=== PATIENT | male | born 1950 | race Caucasian/White ===

== ENCOUNTER → 2017-10-24 10:42 | Outpatient (POV) | payer MEDICARE, OTHER, SELFPAY | PROVIDERS: Family Provider Nurse Practitioner Family; PCP Nurse Practitioner Family; Visit Provider Physician Assistant | DX: Z00.00 Encounter for general adult medical examination without abnormal findings (principal) ==

== ENCOUNTER → 2018-03-21 10:26 | Outpatient (POV) | payer MEDICARE, OTHER, SELFPAY | PROVIDERS: Visit Provider Dermatology | DX: Z00.00 Encounter for general adult medical examination without abnormal findings (principal) ==

== ENCOUNTER → 2018-12-22 07:52 | Outpatient (CLI) | payer MEDICARE, SELFPAY ==
--- NOTE | 2018-12-22 07:56 | US_ITS ---
PROCEDURE: US AORTA CLINICAL INDICATION: SCREENING AAA , FORMER SMOKER COMPARISON: No exams were available for comparison FINDINGS: No evidence of abdominal aortic aneurysm. Proximal common iliacs have an unremarkable appearance. IMPRESSION: Negative for abdominal aortic aneurysm Dictated by: Kirit Leigh MD 12/22/2018 18:18 Electronically signed by Kirit Leigh MD in [place] 12/22/2018 18:18
== END ==
PROVIDERS: PCP Nurse Practitioner Family; Visit Provider Family Medicine
DX: Z87.891 Personal history of nicotine dependence (principal); Z13.6 Encounter for screening for cardiovascular disorders
CPT/HCPCS: 76770

== ENCOUNTER → 2019-04-13 14:25 | Outpatient (CLI) | payer MEDICARE, SELFPAY ==
--- NOTE | 2019-04-13 14:34 | XR_ITS ---
PROCEDURE: XR KUB CLINICAL INDICATION: kidney stone COMPARISON: ABDPELW/O CT ABD PELVIS W/O CONTRAST from 08/28/2014 FINDINGS: Gas pattern-The bowel gas pattern is unremarkable. No obvious obstruction. Calcifications-No abnormal calcifications are evident. No obvious renal or ureteral calculi. Bones-No acute bony anomalies evident. IMPRESSION: No acute findings. Dictated by: Kirit Leigh MD 04/13/2019 16:29 Electronically signed by Kirit Leigh MD in [place] 04/13/2019 16:29
== END ==
PROVIDERS: PCP Family Medicine; Visit Provider Urology
DX: N20.0 Calculus of kidney (principal)
CPT/HCPCS: 74018

== ENCOUNTER → 2019-04-17 15:31 | Outpatient (CLI) | payer MEDICARE, SELFPAY ==
--- NOTE | 2019-04-17 15:53 | CT_ITS ---
PROCEDURE: CT ABDOMEN PELVIS WO CON CLINICAL INDICATION: flank pain/ hematuria Right flank pain, hematuria history kidney stones COMPARISON: ABDPELW/O CT ABD PELVIS W/O CONTRAST from 08/28/2014 TECHNIQUE: Axial images obtained with sagittal and coronal reformats. All CT scans at the facility use one or more dose reduction, viz: automated exposure control, ma/kV adjustment per patient size (including targeted exams where dose is matched to indication, i.e. head), or iterative reconstruction technique. FINDINGS: LOWER THORAX: Coronary artery stent and or calcification noted ABDOMEN & PELVIS: Multiple gallstones are present. The liver, spleen, adrenal glands, and pancreas have an unremarkable unenhanced appearance. There are multiple bilateral renal cyst as well as bilateral renal calculi with multiple punctate calculi on the right measuring up to 4 mm mid on the left measuring up to 3 mm. There is mild stranding of the right perinephric renal fat. There is mild right hydronephrosis and hydroureter with stranding of the periureteral fat. There is a right ureterovesical junction stone which measures 6 mm. Prostate is prominent at 6 cm with central low-density changes in the prostate which could be due to prior TURP defect. No intestinal obstruction or free air. There is a small hiatal hernia. No evidence of appendicitis, intestinal obstruction, or free air. No evidence of diverticulitis although there is diverticulosis of the descending and sigmoid colon soft tissue density is present in the left inguinal region and could be due to prior hernia repair. There is a small umbilical hernia containing fat. No acute bony findings. IMPRESSION: 6 mm right ureterovesical junction stone with mild right hydroureter and hydronephrosis with stranding of the perinephric renal fat. Bilateral renal calculi with bilateral renal cyst Cholelithiasis Dictated by: Kiirt Leigh MD 04/17/2019 16:43 Electronically signed by Kirit Liegh MD in [place] 04/17/2019 16:43
== END ==
PROVIDERS: PCP Family Medicine; Visit Provider Urology
DX: R10.9 Unspecified abdominal pain (principal); R31.9 Hematuria, unspecified
CPT/HCPCS: 74176

== ENCOUNTER → 2019-04-30 09:14 | Outpatient (CLI) | payer MEDICARE, SELFPAY ==
--- NOTE | 2019-04-30 09:21 | XR_ITS ---
PROCEDURE: XR FOOT WT BEARING LT 3V CLINICAL INDICATION: pain Left foot pain COMPARISON: No exams were available for comparison FINDINGS: No fracture or dislocation. No lytic or blastic change. There is normal mineralization. There are severe osteoarthritic changes at the 1st metatarsophalangeal joint with osteosclerosis, loss of joint space, and prominent osteophyte formation. Other findings:None. 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
--- NOTE | 2019-04-30 09:21 | XR_ITS ---
PROCEDURE: XR FOOT WT BEARING RT 3V CLINICAL INDICATION: pain Right foot pain COMPARISON: No exams were available for comparison FINDINGS: No fracture or dislocation. No lytic or blastic change. There is normal mineralization. The moderate osteoarthritic changes are present at the 1st MTP joint with osteophyte formation. There is a small calcaneal spur. Other findings:None. IMPRESSION: Osteoarthritis of the 1st MTP joint Dictated by: Kirit Leigh MD 04/30/2019 11:40 Electronically signed by Kirit Leigh MD in [place] 04/30/2019 11:40
== END ==
PROVIDERS: PCP Family Medicine; Visit Provider Podiatrist
DX: M79.672 Pain in left foot (principal); M79.671 Pain in right foot
CPT/HCPCS: 73630

== ENCOUNTER → 2019-10-23 13:25 | Outpatient (POV) | payer MEDICARE, SELFPAY | PROVIDERS: Visit Provider Dermatology | DX: Z00.00 Encounter for general adult medical examination without abnormal findings (principal) ==

== ENCOUNTER → 2020-03-27 07:38 | Outpatient (CLI) | payer MEDICARE, OTHER, SELFPAY ==
--- NOTE | 2020-03-27 07:39 | NM_ITS ---
APPROVED REPORT Exam: Nuclear Stress Test Indication: short of breath..syncope..fatigue Patient Location: Outpatient Stress Tech: Geovanna Huynh CT Tech:ZAIDA Bloom RT(R)(N) Ht: 5 ft 10 in Wt: 225 lbs HR: 58 bpm BP: 175/106 mmHg BSA: 2.19 m2 BMI: 32.2 History: short of breath..syncope..fatigue Procedure: Patient exercised on Alexandr protocol 6.30 minutes and sec, resting heart rate 58 bpm, resting blood pressure 175/106 mmHg, with exercise maximum heart rate achived was 132 bpm which is 87 % of the maximum predicted heart rate and blood pressure was 200/110 mmHg. Patient denied any complaint of chest pain. Patient has Adequate exercise capacity, achieved 7.0 METs of workload on treadmill, the blood pressure response to exercise was Hypertensive. Electrocardiogram Resting electrocardiogram showed sinus rhythm, with exercise there is less than 1.[address] segment depression noted from the baseline EKG. The EKG portion of the exercise Myoview is negative for ischemia. Cardiac Stress and Resting SPECT Images: Cardiac Stress and Resting SPECT images were obtained using technetium 99m Myoview 31.5 mCi stress and 10.92 mCi at rest. Gated SPECT for analysis of segmental wall motion and calculation of the ejection fraction also done. Prone images were also obtained. Cardiac stress and resting SPECT images show uniform myocardial activity without segmental perfusion abnormality, computer derived ejection fraction is 54% with no regional wall motion abnormality, right ventricle is mildly enlarged with normal contractility. Conclusion: 1. The EKG portion of the exercise Myoview is negative for ischemia, patient has adequate exercise capacity achieved 7 mets of workload on treadmill, the blood pressure response to exercise was hypertensive, there was no exercise-induced chest discomfort. 2. No scintigraphic evidence of reversible ischemia seen, computer derived ejection fraction 54% with no regional wall motion abnormality, right ventricle is mildly enlarged with normal contractility. Electronically signed by : Sean Mccarthy, 03/27/2020 15:01:56
--- NOTE | 2020-03-27 09:45 | CA_ITS ---
APPROVED REPORT Exam: Exercise Treadmill Technologist: Ivelisse Dick, Ht: 5 ft 10 in Wt: 230 lbs BSA: 2.21 m2 HR: 58 bpm BP: 175/106 mmHg Medical History Medications: Aspirin,,,,, Carvedilol,,,,, Nexium,,,,, AtorvaASTATIN,,,,, Stress Test Details Test: Alexandr HR Resting HR: 60 bpm Max Heart Rate (APMHR): 151 bpm Max HR Achieved: 132 bpm Target HR (85% APMHR): 128 bpm % of APMHR: 87 Recovery HR: 76 bpm BP Resting BP: 182/100 mmHg Max BP: 220/98 mmHg Recovery BP: 172.0/92.0 mmHg ECG Resting ECG: Sinus bradycardia, incomplete RBBB, PVC, cannot rule out old inferior MA Medications Administered Albuterol ( mg at ) Clinical Exercise duration: 06:31 min Highest Stage Achieved: Exercise capacity: 7.0 METs Stress ECG Conclusion Exercised 6:30 on Alexandr Protocol Max HR: 132 % of PM: 87% Max BP: 220/98 MET's: 7.0 Test stopped due to: SOA, Fatigue Symptoms: No CP Arrhythmias/Ectopy: Occ PVC, One ventricular couplet. ST-T Changes: ST response to exercise is within normal. Conclusion: Normal GXT, Uncontrolled HTN, Myoview images reported separately. Test Summary REST . . . . . . . Resting REST . . . . . . . Standing REST 05:03 0.0 0.0 60 . 182/100 . . Stage 1 01:00 10.0 1.7 89 . . . . Stage 1 02:00 10.0 1.7 106 . . . . Stage 1 03:00 10.0 1.7 114 . 200/110 . . Stage 2 01:00 12.0 2.5 119 . . . . Stage 2 02:00 12.0 2.5 124 . . . . Stage 2 . . . . . . . Cardiolite injected Stage 2 03:00 12.0 2.5 126 . . . . Stage 3 00:31 14.0 3.4 131 . . . Stop exercise at 06:31 RECOVERY 01:00 0.0 0.0 108 . . . . RECOVERY 02:00 0.0 0.0 91 . 220/ 98 . . RECOVERY 03:00 0.0 0.0 82 . 206/113 . . RECOVERY 04:00 0.0 0.0 79 . 206/113 . . RECOVERY 05:00 0.0 0.0 76 . 172/ 92 . . RECOVERY 05:23 0.0 0.0 78 . 172/ 92 . . Electronically signed by : Sean Mccarthy, 03/27/2020 14:58:40
--- NOTE | 2020-03-27 09:52 | CA_ITS ---
APPROVED REPORT EXAM: Comprehensive 2D, Doppler, and color-flow Echocardiogram Pattern Technician: Yvonne Moran RCS, RVS Ht: 5 ft 10 in Wt: 230lbs BSA: 2.21 BP: 162/94 mmHg Rhythm: PVC's Indications: CAD-stent , Abn EKG, GERD 2D Dimensions IVSd 1.04 cm LVEF (Visual) 73.90 % PWd 1.01 cm LA Volume 70.00 mL LVDd 5.36 cm LA Volume Index 30.80 mL/m2 (M/F) 16-34 LVDs 3.04 cm Aortic Root 3.13 cm Left Atrium 4.20 cm LVOT 1.96 cm (M/F) 1.5-2.5 Ascending Aorta 3.04 cm M-Mode Dimensions LA Diam 4.10 cm (1.9-4.0) Ao Diam 3.55 cm (2.0-3.7) EPSs 0.38 cm TAPSE 2.90 (<1.7) LV Diastology E Decel Time 240.00 (160-240 msec) E/A Ratio 1.05 MED E' 4.70 (< 7 cm/sec) MED A' 9.60 cm/s E'/MED E' Ratio 11.74 (>14) LAT E' 6.20 (<10 cm/sec) LAT A' 11.60 cm/s E/LAT E' Ratio 8.90 (>14) Aortic Valve LVOT Max 88.00 (70-110 cm/s) LVOT VTI 18.40 cm AO Peak GR. 4.40 mmHg Mitral Valve MV E Max Narinder. 55.00 (40-130 cm/s) MV A Velocity 52.00 (40-130 cm/s) E/A Ratio 1.05 MV Decel. Time 240.00 (160-240 ms) MV PHT 70.00 ms Pulmonary Valve PV Peak Velocity 87.00 (50-150 cm/s) Tricuspid Valve TR P. Velocity 202.00 cm/s RAP Estimate 10.00 mmHg RVSP 26.40 mmHg Left Ventricle Left atrium is mildly enlarged, left ventricle is normal size, mild concentric left ventricular hypertrophy, visually estimated ejection fraction 55% with no regional wall motion abnormality. Grade 1 diastolic dysfunction seen without tissue Doppler evidence of raise left atrial pressure. Right Ventricle Right atrium and right ventricle are mildly enlarged with normal contractility. Aortic Valve Aortic valve is minimally thickened and fibrosed there is no aortic stenosis or aortic insufficiency. Mitral Valve Mitral valve is grossly normal, there is trace mitral regurgitation. Tricuspid Valve Tricuspid valve grossly normal, there is trace tricuspid regurgitation, tricuspid regurgitation jet velocity is inadequate for calculation of the right ventricular systolic pressure. Pulmonic Valve Pulmonic valve is poorly visualized. Great Vessels Aortic root is normal size. Pericardium No significant pericardial effusion noted. Conclusion 1. Biatrial enlargement, normal left ventricular size, mild concentric left ventricular hypertrophy, visually estimated ejection fraction 55% with no regional wall motion abnormality, grade 1 diastolic dysfunction seen without tissue Doppler evidence of raise left atrial pressure. 2. Mildly enlarged right ventricle with normal contractility. 3. Mild mitral and tricuspid regurgitation. 4. No significant pericardial effusion noted. Electronically signed by : Sean Mccarthy, 03/27/2020 14:57:27
== END ==
PROVIDERS: PCP Family Medicine; Visit Provider Nurse Practitioner Family
DX: E78.5 Hyperlipidemia, unspecified (principal); I10 Essential (primary) hypertension; I25.10 Atherosclerotic heart disease of native coronary artery without angina pectoris; R06.00 Dyspnea, unspecified; R42 Dizziness and giddiness; R53.83 Other fatigue; R94.31 Abnormal electrocardiogram [ECG] [EKG]
CPT/HCPCS: 78452; 93017; 93306; A9502

== ENCOUNTER 2020-04-11 08:58 | Day surgery (SDC) | payer MEDICARE, OTHER, SELFPAY ==
[2020-04-11] VITALS (12 sets, daily range): BP systolic 92–150; BP diastolic 58–106; PULSE 48–64; RESP 16–20; TEMP 36.8; O2SAT 91–97; BMI 33.3
--- NOTE | 2020-04-11 07:08 | IR_ITS ---
APPROVED REPORT Patient Location: Outpatient Electric Motor Winders Assembler: ZAIDA Stockton RT (R) PROCEDURES Left heart catheterization Left ventriculogram Selective coronary angiogram INDICATION Known coronary disease, Worsening angina pectoris Informed consent was obtained prior to the procedure. COMPLICATIONS None Estimated Blood Loss: Less than 10 mls TECHNIQUE One percent lidocaine used to anesthetize the right anterior aspect of the wrist. The right radial artery was accessed via the Seldinger technique. A 6 Japanese sheath was placed in the right radial artery. 2.5 mg of verapamil, 800 mcg of nitroglycerin, 1mg Lidocaine and 5000 U Heparin were given through the arterial sheath. The trap catheter was also used to perform left heart catheterization, left ventriculogram and selective coronary angiogram. At the end of the procedure the sheath was removed good hemostasis was achieved using Traclet band, patient was transferred to the postop holding area in stable condition. ANGIOGRAPHIC RESULTS The left main artery Normal The left anterior descending artery Is proximally normal. The mid vessel has a myocardial bridge which compresses to 60% during systole with remaining vessel normal The circumflex artery Dominant with mild nonflow limiting plaque. This gives rise to a large ramus intermedius which is free of disease The right coronary artery Nondominant with proximal and mid vessel 10 to 20% stenoses The HO ventriculogram reveals Preserved at 55% The left ventricular end-diastolic pressure 15 mmHg IMPRESSION Patent coronary arteries as described above with an inconsequential myocardial bridge Preserved ejection fraction Borderline elevated LVEDP PLAN 1. Medical management Electronically signed by : Jaswinder Mckinnon, 04/11/2020 10:05:43
== END 2020-04-11 13:05 | disposition home or self-care (01) ==
LOC: CATHLAB 09:00
PROVIDERS: PCP Family Medicine; Visit Provider Internal Medicine
DX: E78.2 Mixed hyperlipidemia (principal); I10 Essential (primary) hypertension; I25.118 Atherosclerotic heart disease of native coronary artery with other forms of angina pectoris; R06.00 Dyspnea, unspecified; Z95.5 Presence of coronary angioplasty implant and graft; Z79.899 Other long term (current) drug therapy; I25.2 Old myocardial infarction; Z87.891 Personal history of nicotine dependence
CPT/HCPCS: 93458; 99152; C1725; C1760; C1769; J1644; Q9967

== ENCOUNTER → 2020-10-07 10:10 | Outpatient (POV) | payer MEDICARE, SELFPAY | PROVIDERS: Visit Provider Dermatology | DX: Z00.00 Encounter for general adult medical examination without abnormal findings (principal) ==

== ENCOUNTER → 2021-06-02 09:59 | Outpatient (POV) | payer MEDICARE, SELFPAY | PROVIDERS: Visit Provider Dermatology | DX: Z00.00 Encounter for general adult medical examination without abnormal findings (principal) ==

== ENCOUNTER → 2021-06-30 14:37 | Outpatient (POV) | payer MEDICARE, SELFPAY | PROVIDERS: Visit Provider Dermatology | DX: Z00.00 Encounter for general adult medical examination without abnormal findings (principal) ==

== ENCOUNTER → 2021-09-19 10:07 | Outpatient (CLI) | payer MEDICARE, SELFPAY ==
[2021-09-19 10:19] LABS: MANUAL DIFFERENTIAL MANUAL DIFFERENTIAL (MANUAL DIFF)
--- NOTE | 2021-09-19 10:33 | ECG_ITS ---
APPROVED REPORT Exam: Resting ECG HR:56 bpm ECG Measurements Heart Rate 56 AXES NV 179 P 48 QRSd 128 QRS 61 QT 427 T 48 QTc 420 Conclusion SINUS BRADYCARDIA POSSIBLE RIGHT VENTRICULAR CONDUCTION DELAY [RSR (QR) IN V1/V2] INFERIOR MYOCARDIAL INFARCTION , PROBABLY OLD [40+ ms Q WAVE AND/OR ST/T ABNORMALITY IN II/aVF] ANTEROLATERAL MYOCARDIAL INFARCTION , OF INDETERMINATE AGE [40+ ms Q WAVE IN I/aVL/V3-V6] ABNORMAL ECG UNCONFIRMED REPORT Electronically signed by : Lopez Richardson MD 09/21/2021 14:33:03
[2021-09-19 11:28] LABS: Basophils # 0.1 K/mm3 (0-0.2); Basophils % 1.1 % (0.1-2.0); Eosinophils # 0.3 K/mm3 (0.0-0.4); Eosinophils % 4.4 % (0.1-12.0); Hematocrit 45.5 % (42.0-52.0); Hemoglobin 14.3 g/dL (14.1-18.0); Lymphocytes # 1.8 K/mm3 (0.7-4.5); Lymphocytes % 29.2 % (10-50); Mean Corpuscular HGB Conc 31.5 g/dL (31.8-35.4); Mean Corpuscular Hemoglobin 28.3 pg (27.0-31.2); Mean Corpuscular Volume 89.8 fl (80-94); Mean Platelet Volume 8.4 fl (7.4-10.4); Monocytes # 0.4 K/mm3 (0.1-1.0); Monocytes % 7.1 % (1.7-9.3); Neutrophils # 3.5 K/mm3 (1.8-7.8); Neutrophils % 58.2 % (37.0-80.0); Platelet Count 188 K/mm3 (142-424); Red Blood Count 5.06 M/mm3 (4.60-6.20); White Blood Count 6.1 K/mm3 (4.8-10.8)
[2021-09-19 11:37] LABS: Alanine Aminotransferase 27 U/L (12-78); Albumin Level 3.7 g/dl (3.5-5.0); Albumin/Globulin Ratio 1.3 (1.1-1.8); Alkaline Phosphatase 135 U/L (38-126); Anion Gap 7.3 mEq/L (5-15); Aspartate Amino Transferase 29 U/L (17-59); Bilirubin,Total 0.6 mg/dl (0.2-1.3); Blood Urea Nitrogen 16 mg/dl (9-20); Calcium 8.8 mg/dl (8.4-10.2); Carbon Dioxide 28 mmol/L (22.0-30.0); Chloride 107 mmol/L (98-107); Estimated Glomerular Filt Rate 54 ml/min (>60); GFR (African American) 66 ML/MIN (>60); Globulin 2.8 g/dL (1.3-3.2); Glucose 104 mg/dl (74-100); Potassium 4.3 mmoL/L (3.5-5.1); Sodium 138 mmol/L (136-145); Total Protein,Serum 6.5 g/dl (6.3-8.2)
[2021-09-19 14:00] LABS: Eosinophils % 6 % (0-3); Lymphocytes % 32 % (10-50); Monocytes % 3 % (2-9); Neutrophils % 59 % (42-76); Total Cells Counted 100
[2021-09-19 14:01] LABS: Platelet Estimate Normal; RBC Morphology Normal
== END ==
PROVIDERS: PCP Nurse Practitioner Family; Visit Provider Otolaryngology
DX: J34.89 Other specified disorders of nose and nasal sinuses (principal); Z01.818 Encounter for other preprocedural examination; Z20.822 Contact with and (suspected) exposure to COVID-19
CPT/HCPCS: 36415; 80053; 85007; 85014; 85018; 85048; 85049; 93005; C9803; U0003; U0005

== ENCOUNTER 2021-09-22 08:12 | Day surgery (SDC) | payer MEDICARE, SELFPAY ==
[2021-09-22] VITALS (8 sets, daily range): BP systolic 105–183; BP diastolic 64–97; PULSE 58–65; RESP 12–16; TEMP 36.1–36.4; O2SAT 93–100; BMI 33.0
--- NOTE | 2021-09-22 11:41 | P.OP_ITS ---
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 And then the nose was prepped and draped and then the 7 mm papillomatous looking lesion was excised elliptically down to the underlying submucosa leaving an approximately 5 mm defect. Hemostasis was established with bipolar cautery. The specimen was sent for frozen section analysis and frozen section was benign. Closure was performed with 5-0 chromic in simple interrupted fashion and the procedure concluded. All counts correct. Blood loss minimal. Patient was sent to recovery in stable condition. Condition: stable Disposition: PACU Complications:: None
--- NOTE | 2021-09-22 12:19 | SUR.PHASEI ---
1212 called and gave detailed report to Dean Webb RN 1215 transported pt to post op via stretcher. vital signs stable. denies pain. left in stable condition with Dean Webb RN at bedside.
--- NOTE | 2021-09-23 09:46 | P.PN_ITS ---
[facility] Anesthesia Record Part I Intake, IV Amount: 800 Estimated blood loss (mL): 15 Urine output (mL): 0 Blood Pressure: 105/64 SaO2: 94 Pulse Rate: 59 Respiratory Rate: 12 Temperature: 97.6 F Patient is:: Drowsy Stable to PACU at:: 11:45
[2021-09-23 09:47] VITALS: BP 105/64; PULSE 59; RESP 12; TEMP 36.4; O2SAT 94
--- NOTE | 2021-09-23 09:47 | HMH.ANESCL ---
[facility] Anesthesia Checklist - Patient Identification Patient Identification: Verbal (Name & ) - Structural Data Admitted From: Inpatient Planned Operative Procedure/s: Right Nasal Polyp Biopsy Consent for Planned Operative Procedure(s) Verified: Yes - NPO Status Verified Time NPO: 00:00 - Additional verifications Anesthesia Reactions: No Hx Blood Transfusions: No Blood Transfusion Reaction: No - Airway Assessment C-Spine Mobility Assessed: Yes TMJ Mobility Assessed: Yes Dentition: Good Dentition - Neurological Assessment Level of Consciousness: Awake, Alert, Appropriate - Anesthesia Plan Anesthesia Risk discussed: Yes ASA Class: II Anesthesia Type: General [facility] History I have reviewed the patient's past medical history: Yes Medical History: Reports:: Cancer (skin), Coronary Artery Disease, Gastroesophageal Reflux Disease(GERD), Hypertension, Kidney Stones, Myocardial Infarction Denies:: Diabetes Mellitus Type 1, Diabetes Mellitus Type 2, Internal Pacemaker, MRSA, Seizures *Have you ever received a pneumonia vaccine?: Yes *Have you received a flu vaccine this season?: No Other Medical History: Denies: Blood Transfusion Reaction Anesthesia experience/problems:: none Other Surgeries: Yes: No Previous Surgery, Cardiac Catheterization, Coronary Stent, Hernia Repair. No: Pacemaker Amputation: No Fractures: No - *Social History Last grade of school completed: High school graduate Smoking Status: Never smoker Tobacco Type: cigarettes Alcohol Intake: never Substance Use Type: denies use *Occupational Status:: employed Housing: house Household Members: spouse *Travel in the last 8 weeks: None Family Hx:: Cancer
--- NOTE | 2021-09-23 10:46 | HMH.ANESII ---
[facility] Anesthesia Record Part II Discharge Time: 12:15 Destination: Surgical Day Care (OP Surgery) PACU nurse assessment reviewed?: Yes Patient Condition:: Good Anesthesia Complications:: None Swallowing reflex intact?: Yes Cyanosis?: No Blood Pressure: 133/83 Pulse Rate: 60 Temperature: 97 F Mental Status: Alert & Oriented Pain level:: 0 Nausea and/or vomitting:: None Intake, IV Amount: 0
[2021-09-23 10:47] VITALS: BP 133/83; PULSE 60; TEMP 36.1
== END 2021-09-22 12:46 | disposition home or self-care (01) ==
LOC: OR 08:17
PROVIDERS: PCP Family Medicine; Visit Provider Otolaryngology
DX: J34.89 Other specified disorders of nose and nasal sinuses (principal); I10 Essential (primary) hypertension; I25.10 Atherosclerotic heart disease of native coronary artery without angina pectoris; K21.9 Gastro-esophageal reflux disease without esophagitis; Z79.899 Other long term (current) drug therapy
CPT/HCPCS: 30117; 88305; 88331; 96374; J2405

== ENCOUNTER → 2021-10-13 11:17 | Outpatient (POV) | payer MEDICARE, SELFPAY | PROVIDERS: Visit Provider Dermatology | DX: Z00.00 Encounter for general adult medical examination without abnormal findings (principal) ==

== ENCOUNTER 2021-10-15 13:42 | Emergency (ER) | payer MEDICARE, SELFPAY ==
[2021-10-15 14:00] VITALS: BP 126/82; PULSE 74; RESP 20; TEMP 36.8; O2SAT 97; BMI 34.4
--- NOTE | 2021-10-15 14:02 | XR_ITS ---
FINAL REPORT CLINICAL HISTORY: COUGH, recent covid, patient states he just can't breath good since covid, previous smoker FINDINGS: Two views of the chest were obtained. The heart size and pulmonary vascularity are within normal limits. The mediastinum is normal. The lungs are hyperinflated likely representing COPD. There are bibasilar pulmonary opacities. There are small bilateral pleural effusions. There is no pneumothorax. The bony thorax is intact. IMPRESSION: Bilateral pulmonary opacities could represent pneumonia or atelectasis. Small bilateral pleural effusions. Reviewed, Interpreted and Dictated by Arturo Douglas III, MD Transcribed by Srinath Valenzuela Authenticated and [facility]
--- NOTE | 2021-10-15 14:33 | EXP.UTC ---
Discharge Plan Disposition Patient Disposition: Home, Self-Care Condition: Good Prescriptions Prescriptions: New cefdinir 300 mg capsule 300 mg PO BID Qty: 20 0RF prednisone 20 mg tablet 20 mg PO BID 5 Days Qty: 10 0RF No Action atorvastatin 80 mg tablet 80 mg PO HS aspirin [Adult Low Dose Aspirin] 81 mg tablet,delayed release (DR/EC) 81 mg PO DAILY carvedilol 12.5 mg tablet 12.5 mg PO BID losartan 50 mg tablet 50 mg PO DAILY Qty: 30 5RF esomeprazole magnesium 20 MG capsule,delayed release(DR/EC) 20 mg PO DAILY hydrocodone-acetaminophen 1 EACH tablet 1 tab PO BID PRN (Reason: Severe Pain) 3 Days Qty: 5 0RF Referrals Follow up/Referrals: Lopez Heller MD [Primary Care Provider] - See instructions Activity Restrictions/Add. Instructions Additional Instructions/Restrictions: Take medications as prescribed GO straight to ER if you have any worsening of symptoms Follow up with your Family Doctor for re-evaluation to make sure that medication is clearing the infection Return if needed Clinical Impressions Clinical Impression: Pneumonia Discharge ED Provider: Geovanna Hutchins [facility] HPI General Stated complaint: covid+, soa, congestion Mode of Arrival: Ambulatory Source of Information: Patient Limitations: No Limitations Time Seen by Provider: 10/15/21 14:34 Description of Symptoms (Recalled from Triage Doc. by RN): PATIENT C/O PRODUCTIVE COUGH WITH YELLOW SPUTUM, SOA, AND BODY ACHES. REPORTS HE WAS DIAGNOSED WITH COVID 2 WEEKS AGO HEENT Symptoms (Recalled from RN notes): No Resp Symptoms (Recalled from RN notes): Yes Skin Symptoms (Recalled from RN notes): No MS Symptoms (Recalled from RN notes): No Functional Status (Recalled from RN notes): WNL History of Present Illness Provider Complaint: Patient states that he had COVID a couple weeks ago and still not feeling well States that he is still having cough and at times will cough up some mucous States that he has also felt a little SOA if he is up moving around alot and feeling achy States that he was worried that he may be trying to set up Pneumonia so he wanted to come in and get checked before it got too bad Related Data Home Medications Medication Instructions Recorded Confirmed aspirin 81 mg tablet,delayed 81 mg PO DAILY Heartburn 03/18/20 09/30/21 release (Adult Low Dose Aspirin) atorvastatin 80 mg tablet 80 mg PO HS Cholesterol 03/18/20 09/30/21 carvedilol 12.5 mg tablet 12.5 mg PO BID HEARRT 03/31/20 09/30/21 esomeprazole magnesium 20 mg 20 mg PO DAILY GERD 09/22/21 09/30/21 capsule,delayed release Previous Rx's Medication Instructions Recorded hydrocodone 5 mg-acetaminophen 325 1 tab PO BID PRN Severe Pain 3 09/22/21 mg tablet days #5 tabs losartan 50 mg tablet 50 mg PO DAILY High blood pressure 10/05/21 #30 tabs cefdinir 300 mg capsule 300 mg PO BID #20 caps 10/15/21 prednisone 20 mg tablet 20 mg PO BID 5 days #10 tabs 10/15/21 Allergies Allergy/AdvReac Type Severity Reaction Status Date / Time No Known Allergies Allergy Verified 09/30/21 12:18 Worker's Comp Is this a Worker's Comp case?: No PFSH PFSH Medical History (Updated 10/15/21 @ 15:29 by Geovanna Hutchins APRN) Heart attack Hypertension Hypertension Kidney stones Surgical History (Updated 10/15/21 @ 14:26 by Keren Shaikh RN) H/O right heart catheterization History of hernia repair Family History (Updated 09/30/21 @ 12:43 by DAISY Mendez) Other Cancer Diabetes Social History (Updated 10/15/21 @ 14:26 by Keren Shaikh RN) Smoking Status: Never smoker alcohol intake: never substance use type: denies use current occupational status: employed Travel in the last 8 weeks: None household members: spouse housing: house 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
[2021-10-15 15:01] VITALS: BP 126/82; PULSE 74; RESP 20; TEMP 36.8; O2SAT 97
== END 2021-10-15 15:48 | disposition home or self-care (01) ==
PROVIDERS: Emergency Provider Nurse Practitioner; PCP Family Medicine
DX: J18.9 Pneumonia, unspecified organism (principal); Z86.16 Personal history of COVID-19
CPT/HCPCS: 71046; 94640; 99212; G0463

== ENCOUNTER 2021-10-20 19:38 | Observation (INO) | payer MEDICARE, SELFPAY ==
[2021-10-20 19:39] VITALS: BP 158/93; PULSE 91; RESP 16; TEMP 36.9; O2SAT 97; BMI 31.5
--- NOTE | 2021-10-20 20:01 | ECG_ITS ---
APPROVED REPORT Exam: Resting ECG HR:84 bpm ECG Measurements Heart Rate 84 AXES ME 171 P 68 QRSd 122 QRS 67 QT 373 T 52 QTc 414 Conclusion SINUS RHYTHM WITH OCCASIONAL VENTRICULAR PREMATURE COMPLEXES RIGHT BUNDLE BRANCH BLOCK [120+ ms QRS DURATION, UPRIGHT V1, 40+ ms S IN I/aVL/V4/V5/V6] PROBABLE ANTERIOR MYOCARDIAL INFARCTION , OF INDETERMINATE AGE [35 ms Q WAVE IN V3/V4] ABNORMAL ECG UNCONFIRMED REPORT Electronically signed by : Lopez Richardson MD 10/21/2021 07:14:43
--- NOTE | 2021-10-20 20:04 | CT_ITS ---
PROCEDURE INFORMATION: Exam: CTA Chest With Contrast Exam date and time: 10/20/2021 8:52 PM Age: 71 years old Clinical indication: Shortness of breath; Additional info: Short of breath, recent covid TECHNIQUE: Imaging protocol: Computed tomographic angiography of the chest with contrast. 3D rendering (Not supervised by radiologist): MIP and/or 3D reconstructed images were created by the technologist. Radiation optimization: All CT scans at this facility use at least one of these dose optimization techniques: automated exposure control; mA and/or kV adjustment per patient size (includes targeted exams where dose is matched to clinical indication); or iterative reconstruction. Contrast material: ISOVUE; Contrast volume: 70 ml; Contrast route: INTRAVENOUS (IV); COMPARISON: CR XR CHEST 2V 10/15/2021 2:02 PM FINDINGS: Pulmonary arteries: Normal. No pulmonary emboli. Aorta: Unremarkable. No aortic aneurysm. No aortic dissection. Lungs: In the left lung apex medially there is a spiculated mass measuring 3.3 cm concerning for malignancy. This is confluent with the prevascular mass. Coarse interstitial lung markings which could reflect mild interstitial edema versus interstitial pneumonia versus lymphangitic spread of carcinoma. Scattered areas of atelectasis bilaterally. Pleural spaces: Tiny bilateral pleural effusions. Heart: See Mediastinal space finding. Mediastinal space: Multiple irregular mediastinal masses all likely interconnected concerning for malignancy. This mass extends and involves the prevascular region, left hilar region, subcarinal region, AP window, peak carinal and right hilar regions. Lymph nodes: See Lungs finding. Gallbladder and bile ducts: Multiple gallstones. Bones/joints: Unremarkable. No acute fracture. Soft tissues: Unremarkable. IMPRESSION: 1. Confluent mediastinal mass as described above concerning for neoplasm. 2. Left lung apex spiculated mass concerning for malignancy. 3. Interstitial prominence could reflect interstitial edema versus interstitial pneumonia versus areas of lymphangitic spread of carcinomatosis. 4. Mild bilateral pleural effusions. Highly suspicious nodule(s). Consider non-emergent PET/CT, or tissue sampling.(Reference: Jose) References: Jose Nunez et al. Guidelines for Management of Incidental Pulmonary Nodules Detected on CT Images: From the Fleischner Society 2017. Radiology. 2017;284(1):228-243.
[2021-10-20 20:25] LABS: Coronavirus 19, PCR Not Detected (NotDetected); Influenza A, PCR Not Detected (NotDetected); Influenza B, PCR Not Detected (NotDetected)
[2021-10-20 20:26] LABS: Basophils # 0.1 K/mm3 (0-0.2); Basophils % 0.7 % (0.1-2.0); Eosinophils # 0.5 K/mm3 (0.0-0.4); Eosinophils % 3.7 % (0.1-12.0); Hematocrit 46.8 % (42.0-52.0); Hemoglobin 15.2 g/dL (14.1-18.0); Lymphocytes % 22.1 % (10-50); Mean Corpuscular HGB Conc 32.4 g/dL (31.8-35.4); Mean Corpuscular Hemoglobin 28.1 pg (27.0-31.2); Mean Corpuscular Volume 86.8 fl (80-94); Mean Platelet Volume 8.4 fl (7.4-10.4); Monocytes # 0.8 K/mm3 (0.1-1.0); Neutrophils # 9.2 K/mm3 (1.8-7.8); Neutrophils % 67.5 % (37.0-80.0); Platelet Count 276 K/mm3 (142-424); Red Blood Count 5.39 M/mm3 (4.60-6.20); Red Cell Distribution Width 13.9 % (11.5-17.5); White Blood Count 13.6 K/mm3 (4.8-10.8)
[2021-10-20 20:33] LABS: Alanine Aminotransferase 29 U/L (12-78); Albumin Level 3.6 g/dl (3.5-5.0); Albumin/Globulin Ratio 1.1 (1.1-1.8); Alkaline Phosphatase 177 U/L (38-126); Anion Gap 12.8 mEq/L (5-15); Aspartate Amino Transferase 25 U/L (17-59); Bilirubin,Total 0.3 mg/dl (0.2-1.3); Blood Urea Nitrogen 24 mg/dl (9-20); Calcium 8.6 mg/dl (8.4-10.2); Carbon Dioxide 31 mmol/L (22.0-30.0); Chloride 99 mmol/L (98-107); Creatinine Clearance Estimated 68 mL/min (50-200); Estimated Glomerular Filt Rate 50 ml/min (>60); GFR (African American) 60 ML/MIN (>60); Globulin 3.2 g/dL (1.3-3.2); Glucose 118 mg/dl (74-100); Potassium 3.8 mmoL/L (3.5-5.1); Sodium 139 mmol/L (136-145); Total Protein,Serum 6.8 g/dl (6.3-8.2)
[2021-10-20 20:45] VITALS: PULSE 81; RESP 17; O2SAT 92
[2021-10-20 20:47] LABS: Troponin I < 0.01 ng/ml (0.00-0.034)
[2021-10-20 21:30] VITALS: BP 130/81; PULSE 83; RESP 23; O2SAT 93
--- NOTE | 2021-10-20 22:07 | HMH.EDGENADL ---
Discharge Plan Disposition Patient Disposition: Admitted As Inpatient Condition: Fair Chief Complaint: Shortness of Breath/Dyspnea Clinical Impressions Clinical Impression: Hypoxia, Pulmonary nodule, Pneumonia Discharge ED Provider: Christiane Mckinnon Adult HPI General Chief complaint: Shortness of Breath/Dyspnea Stated complaint: SOB,cough,fever Time Seen by Provider: 10/20/21 20:00 Mode of Arrival: Ambulatory Limitations: No Limitations Description of Symptoms (Recalled from ER Triage Doc. by RN): pt state have covid 2 weeks ago then when into pneumonia and now pt c/o increasing SOA with exertion that progess over the past 2 days. History of Present Illness HPI narrative: 71-year-old male presenting to the emergency department with cough and shortness of breath. Symptoms started 2 weeks ago. He had a cough that was dry and nonproductive. Had generalized malaise, upper respiratory symptoms. He was diagnosed with COVID-19. A few days later, was diagnosed with pneumonia. Is taking cefdinir and prednisone as prescribed. Over the last few days the shortness of breath has gotten worse. He has shortness of breath with minimal exertion. Feels constantly tired and fatigued. Has occasional pain on the right side of his chest, worse with inspiration. He denies lower extremity swelling. No history of DVT or PE. Related Data Home Medications Medication Instructions Recorded Confirmed aspirin 81 mg tablet,delayed 81 mg PO DAILY Heartburn 03/18/20 10/20/21 release (Adult Low Dose Aspirin) atorvastatin 80 mg tablet 80 mg PO HS Cholesterol 03/18/20 10/20/21 carvedilol 12.5 mg tablet 12.5 mg PO BID HEARRT 03/31/20 10/20/21 esomeprazole magnesium 20 mg 20 mg PO DAILY GERD 09/22/21 10/20/21 capsule,delayed release cefdinir 300 mg capsule 300 mg PO BID LUNG INFECTION 10/20/21 10/20/21 prednisone 20 mg tablet 20 mg PO BID SHORTNESS OF BREATH 10/20/21 10/20/21 Previous Rx's Medication Instructions Recorded losartan 50 mg tablet 50 mg PO DAILY High blood pressure 10/05/21 #30 tabs Allergies Allergy/AdvReac Type Severity Reaction Status Date / Time No Known Allergies Allergy Verified 09/30/21 12:18 [facility] Medical History (Updated 10/21/21 @ 00:31 by Christiane Mckinnon DO) Heart attack Hypertension Hypertension Kidney stones Surgical History (Updated 10/15/21 @ 14:26 by Keren Shaikh RN) H/O right heart catheterization History of hernia repair Family History (Updated 09/30/21 @ 12:43 by DAISY Mendez) Other Cancer Diabetes Social History (Updated 10/15/21 @ 14:26 by Keren Shaikh RN) Smoking Status: Never smoker alcohol intake: never substance use type: denies use current occupational status: employed Travel in the last 8 weeks: None household members: spouse housing: house 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 current occupational exposures/hazards: No caffeine: Yes ROS Obtained: Yes All systems reviewed & no additional complaints except as documented Constitutional Constitutional: Denies chills, Reports fatigue, Denies fever(s), Denies headache(s) and Reports malaise ENT Ears, Nose, Mouth, and Throat: Denies dizziness, Denies headache(s), Denies sinus pressure and Denies sore throat Cardiovascular Cardiovascular: Reports chest pain (Right side, with inspiration) and Reports dyspnea Respiratory Respiratory: Reports chest congestion, Reports cough, Reports dyspnea and Reports pain with breathing Gastrointestinal Gastrointestingal: Denies abdominal pain, nausea or vomiting Integumentary/Breasts Skin/Breast: Denies lesions and Denies rash Neurologic Neurologic: Denies dizziness and Denies headache(s) Endocrine Endocrine: Reports fatigue Physical Exam General General appearance: alert and in no apparent distress Head Head exam: atraumatic and normocephalic Eye Eye exam: Present normal appearance and EOMI ENT ENT exam: Present normal exam and mucou
[2021-10-20 22:31] VITALS: BP 119/73; PULSE 80; RESP 15; O2SAT 94
[2021-10-20 23:00] VITALS: BP 139/81; PULSE 74; RESP 20; O2SAT 92
[2021-10-21] VITALS (9 sets, daily range): BP systolic 112–148; BP diastolic 60–96; PULSE 71–93; RESP 14–20; TEMP 36.4–37; O2SAT 92–95; BMI 32.2
--- NOTE | 2021-10-21 00:09 | PC.NURSE ---
Dr. David underwood for ED doctor
--- NOTE | 2021-10-21 01:04 | PC.NURSE ---
PT ARRIVED VIA WHEELCHAIR TO FLOOR AT THIS TIME
[2021-10-21 06:24] LABS: Blood Urea Nitrogen 22 mg/dl (9-20); Calcium 8.4 mg/dl (8.4-10.2); Carbon Dioxide 28 mmol/L (22.0-30.0); Chloride 104 mmol/L (98-107); Creatinine Clearance Estimated 75 mL/min (50-200); Estimated Glomerular Filt Rate 54 ml/min (>60); GFR (African American) 66 ML/MIN (>60); Glucose 94 mg/dl (74-100); Sodium 137 mmol/L (136-145)
--- NOTE | 2021-10-21 06:43 | PC.NURSE ---
pt rested well this shift, pt's VSS, pt required 2LNC this shift pt did feel short of air upon arrival, pt had no pain this shift, pt's lung sounds clear to diminished, pt ambulating to and from bathroom, family will be back this am, call light within reach
--- NOTE | 2021-10-21 07:50 | EXP.PHA.VTE ---
[facility] Pharmacy VTE Monitoring Patient Demographics Admission date: 10/20/21 Report Date: 10/21/21 Time: 07:50 Patient Allergies No Known Allergies Allergy (Verified 09/30/21 12:18) Height: 1.78 m Weight: 101.922 kg Current Active Problems (Updated 10/21/21 @ 01:42 by Mayte Ward RN) Hypoxia (Acute) Pulmonary nodule (Acute) Pneumonia (Acute) VTE Risk Labs: VTE Related Lab Results Hgb 15.2 g/dL (14.1-18.0) 10/20/21 20:05 Hct 46.8 % (42.0-52.0) 10/20/21 20:05 Plt Count 276 K/mm3 (142-424) 10/20/21 20:05 BUN 22 mg/dl (9-20) H 10/21/21 05:52 Creatinine 1.30 mg/dl (0.66-1.25) H 10/21/21 05:52 Estimated Creat Clear 75 mL/min (50-200) 10/21/21 05:52 Clinical Trial Participant: No Prophylaxis VTE Prophylaxis Ordered?: Yes Types of VTE Prophylaxis: TEDS Knee High
--- NOTE | 2021-10-21 08:05 | EXP.HP ---
History of Present Illness *Admission Date: 10/20/21 *Reason for visit:: Shortness of breath *History of present illness: 71-year-old male presenting to the emergency department with cough and shortness of breath.? Symptoms started 2 weeks ago.? He had a cough that was dry and nonproductive.? Had generalized malaise, upper respiratory symptoms.? He was diagnosed with COVID-19.? A few days later, was diagnosed with pneumonia.? Is taking cefdinir and prednisone as prescribed.? Over the last few days the shortness of breath has gotten worse.? He has shortness of breath with minimal exertion.? Feels constantly tired and fatigued.? Has occasional pain on the right side of his chest, worse with inspiration.? He denies lower extremity swelling.? No history of DVT or PE. (above as per ER physician) The patient was evaluated in the ER and found to have an elevated white blood cell count and a mildly elevated D-dimer. His creatinine was elevated as well. His COVID test was negative. He had a CTA which showed no PE, but it did show a new 3 cm left upper lobe spiculated mass along with multiple small mediastinal masses. He has a significant history of tobacco use and this was concerning from a radiology standpoint for primary lung cancer. He required nasal oxygen to maintain oxygen saturations greater than 90% and was therefore admitted for further evaluation and treatment along with a pulmonology consult. [facility] Medical History (Updated 10/21/21 @ 08:32 by WILFRIDO Hill) Heart attack History of skin cancer Hypertension Hypertension Kidney stones Prostate asymmetry Surgical History (Updated 10/21/21 @ 08:28 by WILFRIDO Hill) H/O right heart catheterization History of coronary artery stent placement History of hernia repair History of surgical removal of skin lesion Family History Diabetes Cancer Social History (Updated 10/21/21 @ 08:29 by WILFRIDO Hill) Smoking Status: Former smoker alcohol intake: never substance use type: denies use current occupational status: employed Travel in the last 8 weeks: None household members: spouse housing: house 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 current occupational exposures/hazards: No caffeine: Yes Review of Systems Constitutional Constitutional: Reports fatigue, Denies headache(s) and Reports weakness Eyes Eyes: Denies blurry vision and Denies diplopia ENT Ears, Nose, Mouth, and Throat: Denies dizziness, Denies headache(s), Denies nasal congestion and Denies sore throat *Cardiovascular Cardiovascular: Reports chest pain and Reports dyspnea *Respiratory Respiratory: Reports cough, Reports dyspnea and Reports excessive phlegm production *Gastrointestinal Gastrointestinal: Denies abdominal pain, Denies diarrhea, Denies nausea and Denies vomiting *Genitourinary Genitourinary: Denies difficulty urinating and Denies dysuria *Musculoskeletal Musculoskeletal: Denies arthralgias *Neurologic Neurologic: Denies dizziness, Denies headache(s) and Reports weakness Endocrine Endocrine: Reports fatigue Meds Home Medications and Allergies Home Medications Medication Instructions Recorded Confirmed Type aspirin 81 mg tablet,delayed 81 mg PO DAILY Heartburn 03/18/20 10/20/21 History release (Adult Low Dose Aspirin) atorvastatin 80 mg tablet 80 mg PO HS Cholesterol 03/18/20 10/20/21 History carvedilol 12.5 mg tablet 12.5 mg PO BID HEARRT 03/31/20 10/20/21 History esomeprazole magnesium 20 mg 20 mg PO DAILY GERD 09/22/21 10/20/21 History capsule,delayed release losartan 50 mg tablet 50 mg PO DAILY High blood pressure 10/05/21 10/20/21 Rx #30 tabs cefdinir 300 mg capsule 300 mg PO BID LUNG INFECTION 10/20/21 10/20/21 History prednisone 20 mg tablet 20 mg PO BID SHORTNESS OF BREATH 10/20/21 10/20/21 History New Prescriptions to Start Prescriptions: Allergies Allergy/AdvReac Type Severity Reaction Status
--- NOTE | 2021-10-21 12:07 | EXP.PULM.CON ---
History of Present Illness History of present illness: Mr. Hager is a 71-year-old male prior smoker greater than [id number] smoking, Smoked 20 years ago presented to hospital with worsening respiratory distress along with cough, not associated any significant productive phlegm, no subjective fevers got a CTA performed found to have lung mass and pulmonary was called for further management. Patient also complains of right-sided chest pain. Dyspnea worsening for the last 2 to 3 weeks PFSH [facility] Medical History (Updated 10/21/21 @ 12:09 by Kenya Chahal MD) Heart attack History of skin cancer Hypertension Hypertension Kidney stones Prostate asymmetry Respiratory failure, acute Surgical History (Updated 10/21/21 @ 08:28 by WILFRIDO Hill) H/O right heart catheterization History of coronary artery stent placement History of hernia repair History of surgical removal of skin lesion Family History Diabetes Cancer Social History (Updated 10/21/21 @ 08:29 by WILFRIDO Hill) Smoking Status: Former smoker alcohol intake: never substance use type: denies use current occupational status: employed Travel in the last 8 weeks: None household members: spouse housing: house current occupation: [employer] current occupational exposures/hazards: No caffeine: Yes Review of Systems Constitutional Constitutional: Reports fatigue, Denies headache(s), Reports lethargy, Reports snoring and Reports weakness Eyes Eyes: Denies eye discharge, Denies dry eyes, Denies irritation and Denies itchy eyes ENT Ears, Nose, Mouth, and Throat: Denies dizziness, Denies headache(s), Denies lip swelling and Denies throat swelling *Cardiovascular Cardiovascular: Reports dyspnea and Reports dyspnea on exertion *Respiratory Respiratory: Reports chest congestion, Reports cough, Reports dyspnea, Reports dyspnea on exertion, Reports excessive phlegm production, Reports snoring and Reports wheezing *Gastrointestinal Gastrointestinal: Denies abdominal pain, Denies belching and Denies cramping *Musculoskeletal Musculoskeletal: Reports back pain, Reports myalgias and Reports other (No small joint swelling or Pain) *Neurologic Neurologic: Denies dizziness, Denies headache(s) and Reports weakness Psychiatric Psychiatric: Denies homicidal ideation and Denies suicidal ideation Endocrine Endocrine: Reports fatigue and Denies heat intolerance Hematologic/Lymphatic Hematologic/Lymphatic: Denies easy bleeding and Denies lymphadenopathy Allergic/Immunologic Allergic/Immunologic: Denies itchy eyes, Denies lip swelling, Denies throat swelling and Reports wheezing Pulmonology Exam Inpatient Vital signs and Labs for Last 24 Hours: Temp Pulse Resp BP Pulse Ox 98.4 F 77 14 114/66 95 10/21/21 11:25 10/21/21 11:25 10/21/21 11:25 10/21/21 11:25 10/21/21 11:25 Laboratory Results - last 24 hr 10/20/21 20:05: WBC 13.6 H, RBC 5.39, Hgb 15.2, Hct 46.8, MCV 86.8, MCH 28.1, MCHC 32.4, RDW 13.9, Plt Count 276, MPV 8.4, Neut % (Auto) 67.5, Lymph % (Auto) 22.1, [place] % (Auto) 6.0, Eos % (Auto) 3.7, Baso % (Auto) 0.7, Neut # (Auto) 9.2 H, Lymph # (Auto) 3.0, [place] # (Auto) 0.8, Eos # (Auto) 0.5 H, Baso # (Auto) 0.1 10/20/21 20:05: D-Dimer 1.00 H 10/20/21 20:05: Sodium 139, Potassium 3.8, Chloride 99, Carbon Dioxide 31 H, Anion Gap 12.8, BUN 24 H, Creatinine 1.40 H, Estimated Creat Clear 68, Estimated GFR 50 L, Est GFR ( Amer) 60, Glucose 118 H, Calcium 8.6, Total Bilirubin 0.3, AST 25, ALT 29, Alkaline Phosphatase 177 H, Troponin I < 0.01, Total Protein 6.8, Albumin 3.6, Globulin 3.2, Albumin/Globulin Ratio 1.1 10/20/21 20:17: SARS-CoV-2 (PCR) Not detected, Influenza A Untype (PCR) Not detected, Influenza Type B (PCR) Not detected 10/21/21 05:52: Sodium 137, Potassium 4.0, Chloride 104, Carbon Dioxide 28, Anion Gap 9.0, BUN 22 H, Creatinine 1.30 H, Estimated Creat Clear 75, Estimated GFR 54 L, Est GFR (A
--- NOTE | 2021-10-21 14:36 | PC.NURSE ---
PT IS AOX4, ABLE OT MAKE NEEDS KNOWN TO STAFF, SAT UP TO CHAIR FOR MEALS AND AMBULATED TO [id number] INDEPENDENTLY. TOLERATING ROOM AIR WELL AT THIS TIME WITH O2 SATS 93%. NO C/O N/V/D.
--- NOTE | 2021-10-21 14:41 | PC.NURSE ---
Addendum entered by Jasmin Carrizales RN 10/21/21 14:51: verified with [facility] office that they would be setting up pet scan appointment. patient already scheduled for bronchoscopy and they will make follow up with lena after that. this was relayed to patient and family. Original Note: rounded on patient. patient is eager for discharge and family asking when that might be. [facility] had stated they could follow up on an outpatient basis, and patient was under impression they could leave. md office was notified and room air sat obtained. patient feels much better. no other questions or concerns at this time. updated them. encouraged them to ring out as needed.
[2021-10-22] VITALS: BP 104/53; PULSE 68; RESP 18; TEMP 36.8; O2SAT 96
[2021-10-22 03:59] VITALS: BP 112/72; PULSE 71; RESP 17; TEMP 36.7; O2SAT 91
--- NOTE | 2021-10-22 04:54 | PC.NURSE ---
No acute changes. No c/o voiced to staff. Ins. wheezing noted to left lung field. Tolerating room air well with sats >90%. Call light within reach.
[2021-10-22 05:00] VITALS: BMI 32.0
[2021-10-22 06:10] VITALS: O2SAT 92
[2021-10-22 08:00] VITALS: BP 138/81; PULSE 70; RESP 16; TEMP 36.9; O2SAT 93
--- NOTE | 2021-10-22 09:02 | P.PN_ITS ---
Subjective *Date: 10/22/21 *Time: 09:02 Interval history: Patient states he is feeling better today than he has in months. He coughed up a small amount of sputum this morning, but otherwise his cough has improved and he denies any chest pain or shortness of breath. He slept off and on throughout the night and is anxious to go home today. Medical Exam Vital signs and Labs for Last 24 Hours: Temp Pulse Resp BP Pulse Ox 98.0 F 71 17 112/72 92 L 10/22/21 03:59 10/22/21 03:59 10/22/21 03:59 10/22/21 03:59 10/22/21 06:10 I & O for Labs for Last 24 Hours: Intake & Output 10/19/21 10/20/21 10/21/21 10/22/21 11:59 11:59 11:59 11:59 Intake Total 120 / 120 780 / 780 Output Total 900 / 900 Balance -780 / -780 780 / 780 Weight 224 lb 11.193 oz 223 lb 9 oz Constitutional: Present no acute distress Respiratory: Present CTA bilaterally Cardiac: Present Reg Rate and Rhythm GI: Present soft and normal bowel sounds; Absent distention or tenderness Extremities: Absent edema, clubbing or cyanosis Skin: Present intact Neuro: Present alert and awake Assessment and Plan *Assessment and plan (1) Pneumonia: Status: Acute Category: Medical Code(s): J18.9 - Pneumonia, unspecified organism (2) Hypoxia: Status: Acute Category: Medical Code(s): R09.02 - Hypoxemia (3) Lung mass: Status: Acute Category: Medical Code(s): R91.8 - Other nonspecific abnormal finding of lung field (4) History of COVID-19: Status: Acute Category: Medical Code(s): Z86.16 - Personal history of COVID-19 (5) History of coronary artery stent placement: Status: Chronic Category: Surgical Code(s): Z95.5 - Presence of coronary angioplasty implant and graft (6) HTN (hypertension): Status: Chronic Qualifiers: Hypertension type: essential hypertension Qualified Code(s): I10 - Essential (primary) hypertension Category: Medical Code(s): I10 - Essential (primary) hypertension (7) HLD (hyperlipidemia): Status: Chronic Qualifiers: Hyperlipidemia type: mixed hyperlipidemia Qualified Code(s): E78.2 - Mixed hyperlipidemia Category: Medical Code(s): E78.5 - Hyperlipidemia, unspecified (8) CAD (coronary artery disease): Status: Chronic Qualifiers: Coronary Disease-Associated Artery/Lesion type: [place] artery [place] vs. transplanted heart: [place] heart Associated angina: without angina Qualified Code(s): I25.10 - Atherosclerotic heart disease of [place] coronary artery without angina pectoris Category: Medical Code(s): I25.10 - Atherosclerotic heart disease of [place] coronary artery without angina pectoris (9) Grade I diastolic dysfunction: Status: Chronic Category: Medical Code(s): I51.9 - Heart disease, unspecified Plan Patient was seen by pulmonology and will have a PET scan next week and follow-up with pulmonology in [place] for bronchoscopy. He is feeling much better today and is stable to be discharged home. He has been weaned to room air. Will discuss further care with Dr. Hernandez.
[2021-10-22 09:27] LABS: Basophils % 0.1 % (0.1-2.0); Eosinophils # 0.2 K/mm3 (0.0-0.4); Eosinophils % 1.1 % (0.1-12.0); Hematocrit 44.3 % (42.0-52.0); Hemoglobin 14.5 g/dL (14.1-18.0); Mean Corpuscular HGB Conc 32.8 g/dL (31.8-35.4); Mean Corpuscular Hemoglobin 28.9 pg (27.0-31.2); Mean Corpuscular Volume 88.3 fl (80-94); Monocytes # 0.5 K/mm3 (0.1-1.0); Monocytes % 3.5 % (1.7-9.3); Neutrophils # 12.4 K/mm3 (1.8-7.8); Neutrophils % 88.4 % (37.0-80.0); Platelet Count 259 K/mm3 (142-424); Red Blood Count 5.02 M/mm3 (4.60-6.20)
[2021-10-22 09:28] LABS: MANUAL DIFFERENTIAL MANUAL DIFFERENTIAL (MANUAL DIFF)
[2021-10-22 09:39] LABS: Alanine Aminotransferase 30 U/L (12-78); Albumin Level 3.3 g/dl (3.5-5.0); Albumin/Globulin Ratio 1.1 (1.1-1.8); Alkaline Phosphatase 145 U/L (38-126); Anion Gap 13.3 mEq/L (5-15); Aspartate Amino Transferase 26 U/L (17-59); Bilirubin,Total 0.4 mg/dl (0.2-1.3); Blood Urea Nitrogen 29 mg/dl (9-20); Calcium 8.4 mg/dl (8.4-10.2); Carbon Dioxide 25 mmol/L (22.0-30.0); Chloride 100 mmol/L (98-107); Creatinine Clearance Estimated 75 mL/min (50-200); Estimated Glomerular Filt Rate 54 ml/min (>60); GFR (African American) 66 ML/MIN (>60); Glucose 145 mg/dl (74-100); Potassium 4.3 mmoL/L (3.5-5.1); Sodium 134 mmol/L (136-145); Total Protein,Serum 6.3 g/dl (6.3-8.2)
--- NOTE | 2021-10-22 09:50 | EXP.PULM.PN ---
Subjective *Date: 10/22/21 *Time: 11:35 Interval history: No acute respiratory vents overnight. Meds continued improvement in his symptoms. Continued to have cough and productive phlegm. Right-sided chest pain improving. Pulmonology Exam Inpatient Vital signs and Labs for Last 24 Hours: Temp Pulse Resp BP Pulse Ox 98.0 F 71 17 112/72 93 L 10/22/21 03:59 10/22/21 03:59 10/22/21 03:59 10/22/21 03:59 10/22/21 08:00 Laboratory Results - last 24 hr 10/22/21 09:18: WBC 14.0 H, RBC 5.02, Hgb 14.5, Hct 44.3, MCV 88.3, MCH 28.9, MCHC 32.8, RDW 14.0, Plt Count 259, MPV 8.0, Neut % (Auto) 88.4 H, Lymph % (Auto) 7.0 L, [place] % (Auto) 3.5, Eos % (Auto) 1.1, Baso % (Auto) 0.1, Neut # (Auto) 12.4 H, Lymph # (Auto) 1.0, [place] # (Auto) 0.5, Eos # (Auto) 0.2, Baso # (Auto) 0.0 10/22/21 09:18: Sodium 134 L, Potassium 4.3, Chloride 100, Carbon Dioxide 25, Anion Gap 13.3, BUN 29 H D, Creatinine 1.30 H, Estimated Creat Clear 75, Estimated GFR 54 L, Est GFR ( Amer) 66, Glucose 145 H, Calcium 8.4, Total Bilirubin 0.4, AST 26, ALT 30, Alkaline Phosphatase 145 H, Total Protein 6.3, Albumin 3.3 L, Globulin 3.0, Albumin/Globulin Ratio 1.1 I & O for Labs for Last 24 Hours: Intake & Output 10/19/21 10/20/21 10/21/21 10/22/21 23:59 23:59 23:59 23:59 Intake Total 900 / 900 Output Total 900 / 900 Balance 0 / 0 Weight 220 lb 224 lb 11.193 oz 223 lb 9 oz Head: Present normocephalic and atraumatic ENT: Present normal exam, normal oropharynx and mucous membranes moist Neck: Present normal inspection and full ROM Respiratory: Present respiratory distress, wheezes, diminished air movement and able to speak in complete sentences Cardiac: Present S1/S2, Tachycardia and radial pulses present GI: Present soft and distention; Absent tenderness or guarding Skin: Present intact; Absent cyanosis or jaundice Neuro: Present alert, awake and oriented x 3 Extremities: Present normal inspection; Absent clubbing or cyanosis Psychiatric: Present normal affect and cooperative Assessment and Plan *Assessment and plan (1) History of COVID-19: Status: Acute Category: Medical Code(s): Z86.16 - Personal history of COVID-19 (2) Respiratory failure, acute: Status: Acute Category: Medical Code(s): J96.00 - Acute respiratory failure, unspecified whether with hypoxia or hypercapnia (3) Nodule of left lung: Status: Acute Category: Medical Code(s): R91.1 - Solitary pulmonary nodule (4) Mediastinal lymphadenopathy: Status: Acute Category: Medical Code(s): R59.0 - Localized enlarged lymph nodes (5) Hilar lymphadenopathy: Status: Acute Category: Medical Code(s): R59.0 - Localized enlarged lymph nodes Plan #Lung mass: #Medius lymphadenopathy #Hilar lymphadenopathy: #Community-acquired pneumonia: #History of COVID-19 pneumonia 71-year-old prior smoker greater than [id number] smoking/quit 20 years ago. Presented worsening respiratory's along with right-sided chest pain. Also diagnosed with COVID-19 pneumonia 3 weeks ago, managed as an outpatient basis. CT CTA reviewed, no pulmonary embolism, noted to have left paramediastinal upper lobe mass crossing the fissure appears to be extending in to the left hilum and also medially towards the mediastinum. Also noted to have bilateral hilar and station 7 lymphadenopathy. Patient also noted to have bilateral prominent interstitial changes concerning for lymphangitic spread. Prior history of CAD status post stenting 11 years ago. Not on any blood thinners at baseline, continues to be on aspirin. Interval update: Continue to receive antibiotics. Initiated on Trelegy inhaler yesterday. Significant improvement in his symptoms,Weaned to room air. Patient will be discharged with outpatient PET scan and EBUS FNA scheduled. Plan: -Schedule PET-CT scan as an outpatient basis. -Schedule outpatient bronchoscopy transbronchial b
[2021-10-22 10:23] LABS: Lymphocytes % 12 % (10-50); Monocytes % 4 % (2-9); Neutrophils % 84 % (42-76); Platelet Estimate Normal; RBC Morphology Normal; Total Cells Counted 100
[2021-10-22 11:42] VITALS: BMI 31.8
--- NOTE | 2021-10-23 22:32 | EXP.DC.SUM ---
General Admission date:: 10/21/21 Discharge date: 10/22/21 HPI HPI HPI: 71-year-old male presenting to the emergency department with cough and shortness of breath.? Symptoms started 2 weeks ago.? He had a cough that was dry and nonproductive.? Had generalized malaise, upper respiratory symptoms.? He was diagnosed with COVID-19.? A few days later, was diagnosed with pneumonia.? Is taking cefdinir and prednisone as prescribed.? Over the last few days the shortness of breath has gotten worse.? He has shortness of breath with minimal exertion.? Feels constantly tired and fatigued.? Has occasional pain on the right side of his chest, worse with inspiration.? He denies lower extremity swelling.? No history of DVT or PE. (above as per ER physician) The patient was evaluated in the ER and found to have an elevated white blood cell count and a mildly elevated D-dimer. His creatinine was elevated as well. His COVID test was negative. He had a CTA which showed no PE, but it did show a new 3 cm left upper lobe spiculated mass along with multiple small mediastinal masses. He has a significant history of tobacco use and this was concerning from a radiology standpoint for primary lung cancer. He required nasal oxygen to maintain oxygen saturations greater than 90% and was therefore admitted for further evaluation and treatment along with a pulmonology consult. Hospital Course Hospital Course Hospital Course: The patient was admitted and started on Zithromax and Rocephin as well as prednisone. Pulmonology was consulted. He reviewed the patient CT and felt there was a left paramediastinal upper lobe mass crossing the fissure which appeared to be extending into the left hilum and also medially toward the mediastinum. It also noted bilateral hilar and station 7 lymphadenopathy as well as bilateral prominent interstitial changes concerning for lymphangitic spread. He felt the patient could be discharged and scheduled on an outpatient basis for a PET scan as well as a bronchoscopy. He felt the antibiotics could be weaned to Augmentin for total of 7 days and that the patient should be discharged on a Trelegy inhaler. By 10/22/2021, the patient stated he felt better than he had in months. He was only coughing up small amounts of sputum and his cough improved. He had slept well and was anxious to go home. He had been weaned to room air. A PET scan was set up for him for the following week as was bronchoscopy with pulmonology in [place]. Exam Data for Last 24 hours Vital signs and Labs for Last 24 Hours: Temp Pulse Resp BP Pulse Ox 98.4 F 70 16 138/81 93 L 10/22/21 08:00 10/22/21 08:00 10/22/21 08:00 10/22/21 08:00 10/22/21 08:00 I & O for Last 24 hours: Intake & Output 10/21/21 10/22/21 10/23/21 10/24/21 11:59 11:59 11:59 11:59 Intake Total 120 / 120 780 / 780 Output Total 900 / 900 0 / 0 Balance -780 / -780 780 / 780 Weight 224 lb 11.193 oz 222 lb 10.67 oz Narrative: Constitutional Constitutional: no acute distress *Routine HEENT Exam Head: Present normocephalic and atraumatic Eye: Present EOMI and PERRL ENT: Present mucous membranes moist *Routine Neck Exam Neck: Present supple and full ROM *Routine Respiratory Exam Respiratory: Present decreased breath sounds and diminished air movement; Absent wheezes *Routine Cardiovascular Exam Cardiovascular: Present RRR *Routine Abdominal Exam Abdominal: Present soft and normoactive bowel sounds; Absent tenderness *Routine Rectal Exam Rectal:: deferred *Routine Genitalia Exam Genitalia:: deferred *Routine Extremities Exam Extremities: Present edema (trace bilateral LE's); Absent cyanosis or clubbing *Routine Skin Exam Skin: Present intact; Absent erythema *Routine Neurological Exam Neurological: Present alert and oriented X3 DS: Diagnosis Discharge Diagnosis (1) History of COVID-19: Status: Acute (2) Respiratory failure, acute: Status: Acute (3) Nodu
--- NOTE | 2021-10-26 14:23 | CARE MANAGER ---
Called Mr. Hager to discuss post discharge status. Patient states that he has almost lost his voice, and feels as though he is not really getting better. He confirmed that he is taking medication prescribed at discharge. Patient advised that if he does not feel as though he is getting better, he should call and schedule a f/u with PCP as he did not have one scheduled at discharge.
== END 2021-10-22 12:35 | disposition home or self-care (01) ==
LOC: ER 19:48 → 2ND 10-21 00:24
PROVIDERS: Admitting Provider Family Medicine; Emergency Provider Emergency Medicine; PCP Nurse Practitioner Family; Visit Provider Family Medicine
DX: J96.01 Acute respiratory failure with hypoxia (principal); Z86.16 Personal history of COVID-19; J18.9 Pneumonia, unspecified organism; R09.02 Hypoxemia; Z95.5 Presence of coronary angioplasty implant and graft; I10 Essential (primary) hypertension; E78.2 Mixed hyperlipidemia; I25.10 Atherosclerotic heart disease of native coronary artery without angina pectoris; R91.1 Solitary pulmonary nodule; R59.0 Localized enlarged lymph nodes; Z20.822 Contact with and (suspected) exposure to COVID-19
CPT/HCPCS: G0378; 36415; 71275; 80048; 80053; 84484; 85007; 85025; 85378; 93005; 94640; 99285; C9803; J0456; J0696; Q9967; U0003; U0005

== ENCOUNTER → 2021-10-27 10:12 | Outpatient (CLI) | payer MEDICARE, SELFPAY ==
--- NOTE | 2021-10-27 10:16 | XR_ITS ---
FINAL REPORT TECHNIQUE: Chest PA & Lateral CLINICAL HISTORY: sob, recent covid COMPARISON: October 15, 2021 FINDINGS: TWO-VIEW CHEST 2 views of the chest were performed. The heart size is normal. The mediastinum is within normal limits. There is extensive coarse interstitial opacity in both lungs which is probably due to chronic fibrosis. There is pleural scarring in the left costophrenic angle. Findings are somewhat accentuated by relative underinflation. There are no pleural effusions. There is no pneumothorax. The bony thorax appears intact. IMPRESSION: Extensive coarse interstitial opacity in both lungs is probably due to chronic fibrosis. Findings somewhat accentuated by relative underinflation. Reviewed, Interpreted and Dictated by Felix Rodgers MD Transcribed by Neda Reynolds Authenticated and [facility]
== END ==
PROVIDERS: PCP Nurse Practitioner Family; Visit Provider Internal Medicine Pulmonary Disease
DX: R06.02 Shortness of breath (principal)
CPT/HCPCS: 71046

== ENCOUNTER → 2021-10-28 13:19 | Outpatient (CLI) | payer MEDICARE, SELFPAY | PROVIDERS: PCP Nurse Practitioner Family; Visit Provider Internal Medicine Pulmonary Disease | DX: R06.02 Shortness of breath (principal) | CPT/HCPCS: 87070; 87205 ==

== ENCOUNTER → 2021-10-31 10:41 | Outpatient (CLI) | payer MEDICARE, SELFPAY | PROVIDERS: PCP Nurse Practitioner Family; Visit Provider Internal Medicine Pulmonary Disease | DX: Z01.812 Encounter for preprocedural laboratory examination (principal); Z20.822 Contact with and (suspected) exposure to COVID-19; J96.10 Chronic respiratory failure, unspecified whether with hypoxia or hypercapnia | CPT/HCPCS: C9803; U0003; U0005 ==

== ENCOUNTER 2021-11-02 14:00 | Observation (INO) | payer MEDICARE, SELFPAY ==
[2021-10-29 08:32] VITALS: BMI 31.5
[2021-11-02] VITALS (22 sets, daily range): BP systolic 97–148; BP diastolic 51–103; PULSE 87–160; RESP 19–28; TEMP 36.3–36.7; O2SAT 89–96; BMI 32.1
--- NOTE | 2021-11-02 10:44 | XR_ITS ---
FINAL REPORT CLINICAL HISTORY: Hypoxia COMPARISON: October 27, 2021 FINDINGS: SINGLE VIEW CHEST. There is stable mild cardiomegaly. The mediastinum is unremarkable. There is a diffuse interstitial prominence that is suspicious for edema, this is similar from the prior exam. There is a tiny left pleural effusion. There is no pneumothorax. IMPRESSION: No significant change. Reviewed, Interpreted and Dictated by Apryl Morrison MD Transcribed by Neda Reynolds Authenticated and [facility]
--- NOTE | 2021-11-02 10:45 | SUR.PREOP ---
When getting pt from pre op waiting room, pt appeared to be experiencing dyspnea. Pt's color was pallor, audible wheezes noted, and RR was between 28-32. Pt immediately placed on 2LNC and was placed on pulse ox, o2 reading was 84%. Pt still complaining of SOB. o2 increased to 4LNC and pt recovered up to 91-94%, and respirations were appearing more even , but still labored. When listening to pt, all lung goldman were diminished per auscultation w/ inspiratory and expiratory wheezing noted. MD Meredith's office notified. STAT portable CXR ordered per MD Chahal.
[2021-11-02 11:15] LABS: ABG Base Excess -1.1 mmol/L (-2.4-2.3); ABG HCO3 22.2 mmhg (22.0-26.0); ABG Oxygen Saturation 92 % (90-100); ABG PH 7.49 mmol/L (7.35-7.45); ABG PO2 59.2 mmhg (80-100); ABG TCO2 23.2 mmhg (23-27)
[2021-11-02 11:17] LABS: Allen's Test Acceptable; Oxygen 4L %; Source Right Radial
--- NOTE | 2021-11-02 12:31 | P.PN_ITS ---
[facility] Medical History Acquired equinus deformity of both feet Acquired hammertoes of both feet Calcaneal spur of both feet COPD exacerbation Hallux rigidus of left foot Heart attack Hilar lymphadenopathy History of skin cancer Hypertension Hypertension Kidney stones Mediastinal lymphadenopathy Nodule of left lung Nodule of left lung Obesity, Class I, BMI 30-34.9 Osteoarthritis of both feet Plantar fasciitis of left foot Pneumonia Prostate asymmetry Respiratory failure, acute Surgical History H/O right heart catheterization History of coronary artery stent placement History of hernia repair History of surgical removal of skin lesion Family History Brother Cancer Mother Cancer Other Diabetes Social History Smoking Status: Former smoker alcohol intake: never substance use type: denies use current occupational status: employed Travel in the last 8 weeks: None household members: spouse housing: house 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 current occupational exposures/hazards: No caffeine: Yes [facility] Anesthesia Checklist Patient Identification Patient Identification: Arm Band and Verbal (Name & ) Structural Data Admitted From: Home Planned Operative Procedure/s: EBUS Consent for Planned Operative Procedure(s) Verified: Yes Verified Documents: Surgical Consent NPO Status Verified Time NPO: 00:00 Chart Verification Results Verified: Chest Xray Additional verifications Anesthesia Reactions: No Hx Blood Transfusions: No Blood Transfusion Reaction: No Airway Assessment C-Spine Mobility Assessed: Yes TMJ Mobility Assessed: Yes Dentition: Good Dentition Neurological Assessment Level of Consciousness: Awake, Alert and Appropriate Anesthesia Plan ASA Class: IV Anesthesia Type: General Preoperative Comments Pre-Operative Comments: Discussed high risk of need for ventilatory support following procedure.
--- NOTE | 2021-11-02 13:34 | EXP.ANES.I ---
[facility] Anesthesia Record Part I Anesthesia Record I Intake, IV Amount: 500 Estimated blood loss (mL): 10 Urine output (mL): 0 Blood Pressure: 106/79 SaO2: 95 Pulse Rate: 116 Respiratory Rate: 19 Temperature: 97.3 F Patient is:: Drowsy and Other (BIPap 12/6 rate 20 FIo2 60%) Stable to PACU at:: 13:27
--- NOTE | 2021-11-02 13:39 | ECG_ITS ---
APPROVED REPORT Exam: Resting ECG HR:100 bpm ECG Measurements Heart Rate 100 AXES OH 156 P -3 QRSd 117 QRS 68 QT 358 T 9 QTc 415 Conclusion SINUS TACHYCARDIA WITH OCCASIONAL VENTRICULAR PREMATURE COMPLEXES WITH OCCASIONAL SUPRAVENTRICULAR PREMATURE COMPLEXES INCOMPLETE RIGHT BUNDLE BRANCH BLOCK ABNORMAL ECG UNCONFIRMED REPORT Electronically signed by : Lopez Richardson MD 11/05/2021 16:02:14
--- NOTE | 2021-11-02 13:39 | SUR.PHASEII ---
133Joann- MD Alvarado paged for admission. Leonardo- MD Chahal on the phone w/ MD Alvarado
--- NOTE | 2021-11-02 13:42 | XR_ITS ---
FINAL REPORT CLINICAL HISTORY: post bronch FINDINGS: The heart size is normal. The mediastinum is normal. There is diffuse interstitial prominence. There are no pleural effusions. There is no pneumothorax. There is no osseous abnormality. IMPRESSION: Diffuse interstitial prominence. No pneumothorax. Reviewed, Interpreted and Dictated by Apryl Morrison MD Transcribed by Srinath Valenzuela Authenticated and . [facility]
--- NOTE | 2021-11-02 13:43 | SUR.PHASEII ---
1342-Spoke to CAROL Benito in care management regarding admission.
--- NOTE | 2021-11-02 14:11 | EXP.BRONCH.N ---
Procedure: Date: 11/02/21 Patient Date of :: 1950 Procedure Performed:: Bronchoscopy with endobronchial ultrasound-guided fine-needle aspiration, airway examination and bronchoalveolar lavage Indications:: Lung nodule and lymphadenopathy Performing Provider:: Kenya Chahal MD Referring Provider:: Dr:Lupe Mclaughlin APRN Sedation:: General anesthesia Procedure:: Bronchoscopy with endobronchial ultrasound-guided fine-needle aspiration, airway examination and bronchoalveolar lavage A clean EBUS bronchoscopy after the ET tube and lymph node surveillance were performed and patient noted lymphadenopathy in anterior 4R, station 7, 10 R and L. EBUS FNAs were performed at stations 7, 10 R and 10 L with 5 passes each station. Pathology at bedside confirmed adequate lymphoid tissue. Concerning for non-small cell lung cancer. Patient procedure also complicated by frequent hypoxic episodes needing procedure interruption. His PET scan showed abdominal lymphadenopathy along with pleural pericardial effusion concerning for stage IV cancer so no further attempts were made to pursue FNAs at station 4R. EBUS bronchoscopy was retracted on a regular diagnostic bronchoscopy advanced and airways were examined up to segmental bronchi. Airways in the right lung appeared normal. Left upper and left middle lobe bronchi lumen appeared to be narrowed. No active bleeding or mucous plugging noted. Bronchoalveolar lavage was performed in the left middle lobe with a total of instillation of 60 cc normal saline with return of 30 cc back. BAL fluid was sent for bacterial fungal AFB stain and cultures. Findings:: Please see the procedure note Recommendations:: Please see the procedure note. Follow in pulmonary clinic with results. Follow with oncology Complications:: No acute immediate complications. Estimated blood obtained (mL): 15
[2021-11-02 14:45] LABS: Coronavirus 19, PCR Not Detected (NotDetected); Influenza A, PCR Not Detected (NotDetected); Influenza B, PCR Not Detected (NotDetected)
--- NOTE | 2021-11-02 14:46 | EXP.PULM.CON ---
History of Present Illness History of present illness: Mr. Hager is 71-year-old male greater than [id number] smoking history carries a diagnosis of lung nodule lymphadenopathy presented today for bronchoscopy transplant biopsy EBUS FNA complicated by prolonged post operative course needing noninvasive ventilatory therapy and pulmonary was called for further evaluation and admission to the hospital [facility] Medical History (Updated 11/02/21 @ 14:47 by Kenya Chahal MD) Acquired equinus deformity of both feet Acquired hammertoes of both feet Acute and chronic respiratory failure with hypoxia Calcaneal spur of both feet COPD exacerbation Hallux rigidus of left foot Heart attack Hilar lymphadenopathy History of skin cancer Hypertension Hypertension Kidney stones Lung cancer metastatic to bone Mediastinal lymphadenopathy Nodule of left lung Nodule of left lung Obesity, Class I, BMI 30-34.9 Osteoarthritis of both feet Plantar fasciitis of left foot Pneumonia Prostate asymmetry Respiratory failure, acute Surgical History H/O right heart catheterization History of coronary artery stent placement History of hernia repair History of surgical removal of skin lesion Family History Brother Cancer Mother Cancer Other Diabetes Social History Smoking Status: Former smoker alcohol intake: never substance use type: denies use current occupational status: employed Travel in the last 8 weeks: None household members: spouse housing: house 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 current occupational exposures/hazards: No caffeine: Yes Review of Systems Constitutional Constitutional: Reports anorexia, Reports body ache(s) and Reports fatigue Eyes Eyes: Denies eye discharge, Denies dry eyes, Denies irritation and Denies itchy eyes ENT Ears, Nose, Mouth, and Throat: Denies epistaxis, Denies facial pain, Denies lip swelling and Denies throat swelling *Cardiovascular Cardiovascular: Reports dyspnea and Reports dyspnea on exertion *Respiratory Respiratory: Reports chest congestion, Reports cough, Reports dyspnea, Reports dyspnea on exertion, Denies excessive phlegm production and Denies wheezing *Gastrointestinal Gastrointestinal: Denies abdominal pain, Denies belching and Denies cramping *Musculoskeletal Musculoskeletal: Reports back pain, Reports myalgias and Reports other (No small joint swelling or Pain) Psychiatric Psychiatric: Denies homicidal ideation and Denies suicidal ideation Endocrine Endocrine: Reports fatigue and Denies heat intolerance Hematologic/Lymphatic Hematologic/Lymphatic: Denies easy bleeding and Denies lymphadenopathy Allergic/Immunologic Allergic/Immunologic: Denies itchy eyes, Denies lip swelling, Denies throat swelling and Denies wheezing Pulmonology Exam Inpatient Vital signs and Labs for Last 24 Hours: Temp Pulse Resp BP Pulse Ox FiO2 97.3 F L 156 H 19 106/79 L 90 L 50 11/02/21 13:38 11/02/21 13:40 11/02/21 13:38 11/02/21 13:38 11/02/21 11:55 11/02/21 13:40 Laboratory Results - last 24 hr 11/02/21 11:03: Specimen Source Right radial, O2 % 4l, ABG pH 7.49 H, ABG pCO2 30.0 L, ABG pO2 59.2 L, ABG HCO3 22.2, ABG Total CO2 23.2, ABG O2 Saturation 92, ABG Base Excess -1.1, Kirit Test Acceptable I & O for Labs for Last 24 Hours: Intake & Output 10/30/21 10/31/21 11/01/21 11/02/21 23:59 23:59 23:59 23:59 Intake Total 500 / 500 Balance 500 / 500 Head: Present normocephalic and atraumatic ENT: Present normal exam, normal oropharynx and mucous membranes moist Neck: Present normal inspection and full ROM Respiratory: Present respiratory distress, wheezes and able to speak in complete sentences; Absent crackles Cardiac: Present S1/S2, Tachycardia and radial pulses present GI: Present soft and distention; Absent tenderness
--- NOTE | 2021-11-02 14:57 | SUR.PHASEI ---
LATE ENTRY [address] Chahal at bedside. Moni Posada CRNA administered 1mg versed to help relax patient. 1328 Moni Posada CRNA administered another 1mg versed to help relax patient. 1330 bipap in pacu. respiratory at bedside. Dr. Chahal gave verbal order to administer 5mg metoprolol IV for tachycardia. 1331 Lizett Sheets RN administered 5mg metoprolol IV. 1333 bipap placed on patient per respiratory. respiratory managing bipap and titrating as tolerated by patient. duoneb treatment being administered per orders of Moni Posada CRNA 1337 EKG performed by respiratory per Moni Posada CRNA orders. 1340 Dr. Chahal left bedside to talk to family and give update. 1342 radiology at bedside performing chest xray. 1412 called and gave detailed report to KENAN Murphy med/dermatological surgeon. 1417 transported via stretcher to stepdown med/surg room 218. vital signs stable. denies pain. transported on oxygen 10L via simple mask and pulse ox monitoring. detailed report then given to Dash Nix med/dermatological surgeon. patient was able to move from stretcher to bed without difficulty. left patient in stable condition with frances Frank/dermatological surgeon at bedside.
[2021-11-02 15:59] LABS: Basophils % 0.2 % (0.1-2.0); Eosinophils # 0.4 K/mm3 (0.0-0.4); Eosinophils % 2.1 % (0.1-12.0); Hemoglobin 15.4 g/dL (14.1-18.0); Lymphocytes # 0.8 K/mm3 (0.7-4.5); Lymphocytes % 4.5 % (10-50); Mean Corpuscular HGB Conc 31.4 g/dL (31.8-35.4); Mean Corpuscular Hemoglobin 27.9 pg (27.0-31.2); Mean Corpuscular Volume 89.1 fl (80-94); Mean Platelet Volume 8.3 fl (7.4-10.4); Monocytes # 0.6 K/mm3 (0.1-1.0); Monocytes % 3.2 % (1.7-9.3); Neutrophils # 16.1 K/mm3 (1.8-7.8); Platelet Count 226 K/mm3 (142-424); Red Cell Distribution Width 14.3 % (11.5-17.5); White Blood Count 17.9 K/mm3 (4.8-10.8)
--- NOTE | 2021-11-02 16:17 | EXP.HP ---
History of Present Illness *Admission Date: 11/02/21 *Reason for visit:: hypoxia post EBUS WITH FNA'S *History of present illness: Mr. Hager is a 71-year-old male patient with a history of CAD, HTN andrecent COVID pneumonia hospitalized 10/21 through 10/22/2021. He was sent home on Augmentin. With CTA of the chest during this admission a 3 cm mass was noted and at discharge bronchoscopy and PET scan were ordered. He was also started on Levaquin after completion of the Augmentin on 10/29/2021. He had an EBUS with FNA's today by Dr. Chahal complicated by hypoxic episodes. He was found to need noninvasive ventilatory support and was admitted overnight for observation. During or after procedure he did develop some atrial fibrillation with a rapid ventricular response which has resolved. He was weaned from BiPAP to Ventimask at 50% FiO2. At time of this exam patient was noted to be in sinus rhythm with frequent PACs and occasional PVCs. He appears comfortable. To note he has also completed the PET scan which revealed abdominal lymphadenopathy with pleural/pericardial effusion concerning for stage IV cancer. He remains in sinus rhythm. [facility] Medical History (Updated 11/02/21 @ 17:53 by Clint Alvarado MD) Acquired equinus deformity of both feet Acquired hammertoes of both feet Acute and chronic respiratory failure with hypoxia Calcaneal spur of both feet COPD exacerbation GERD (gastroesophageal reflux disease) Hallux rigidus of left foot Heart attack Hilar lymphadenopathy History of skin cancer Hypertension Hypertension Kidney stones Lung cancer metastatic to bone Mediastinal lymphadenopathy Nodule of left lung Nodule of left lung Obesity, Class I, BMI 30-34.9 Osteoarthritis of both feet Plantar fasciitis of left foot Pneumonia Prostate asymmetry Respiratory failure, acute Surgical History (Updated 11/02/21 @ 16:36 by Adry Jennings APRN) H/O right heart catheterization History of coronary artery stent placement History of hernia repair History of surgical removal of skin lesion Family History Diabetes Cancer Brother Mother Social History (Updated 11/02/21 @ 16:04 by Kezia Nix RN) Smoking Status: Former smoker alcohol intake: never substance use type: denies use current occupational status: employed Travel in the last 8 weeks: None household members: spouse housing: house marital status: 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 current occupational exposures/hazards: No caffeine: Yes Review of Systems Constitutional Constitutional: Denies fever(s) Eyes Eyes: Denies change in vision ENT Ears, Nose, Mouth, and Throat: Denies otalgia, Denies sore throat and Denies vertigo *Cardiovascular Cardiovascular: Denies chest pain, Reports dyspnea and Reports irregular heart rhythm *Respiratory Respiratory: Reports cough, Reports dyspnea and Denies hemoptysis *Gastrointestinal Gastrointestinal: Denies abdominal pain, Denies nausea and Denies vomiting *Genitourinary Genitourinary: Denies difficulty urinating *Musculoskeletal Musculoskeletal: Denies abnormal gait *Neurologic Neurologic: Denies abnormal gait, Denies abnormal speech, Denies convulsions and Denies vertigo Meds Home Medications and Allergies Home Medications Medication Instructions Recorded Confirmed Type aspirin 81 mg tablet,delayed 81 mg PO DAILY Heart disease 03/18/20 11/02/21 History release (Adult Low Dose Aspirin) atorvastatin 80 mg tablet 80 mg PO HS Cholesterol 03/18/20 11/02/21 History carvedilol 12.5 mg tablet 12.5 mg PO BID BLOOD PRESSURE 03/31/20 11/02/21 History esomeprazole magnesium 20 mg 20 mg PO DAILY acid reflux 09/22/21 11/02/21 History capsule,delayed release losartan 50 mg tablet 50 mg PO DAILY High blood pressure 10/05/21 11/02/21 Rx #30 tabs albuterol sulfate 90 mcg/actuation 2 puff inhalation Q4HP PRN 10/22/21 10/29/21 Rx
[2021-11-02 16:24] LABS: MANUAL DIFFERENTIAL MANUAL DIFFERENTIAL (MANUAL DIFF)
[2021-11-02 16:26] LABS: Alanine Aminotransferase 35 U/L (12-78); Albumin Level 2.9 g/dl (3.5-5.0); Alkaline Phosphatase 120 U/L (38-126); Anion Gap 14.1 mEq/L (5-15); Aspartate Amino Transferase 25 U/L (17-59); Bilirubin,Total 0.6 mg/dl (0.2-1.3); Blood Urea Nitrogen 27 mg/dl (9-20); Calcium 8.7 mg/dl (8.4-10.2); Carbon Dioxide 27 mmol/L (22.0-30.0); Chloride 101 mmol/L (98-107); Creatinine Clearance Estimated 63 mL/min (50-200); Estimated Glomerular Filt Rate 46 ml/min (>60); GFR (African American) 56 ML/MIN (>60); Glucose 119 mg/dl (74-100); Potassium 5.1 mmoL/L (3.5-5.1); Sodium 137 mmol/L (136-145); Total Protein,Serum 5.9 g/dl (6.3-8.2)
[2021-11-02 16:40] LABS: Troponin I 0.01 ng/ml (0.00-0.034)
[2021-11-02 16:58] LABS: Thyroid Stimulating Hormone 0.76 uIU/mL (0.465-4.68)
[2021-11-02 17:09] LABS: Lymphocytes % 5 % (10-50); Neutrophils % 95 % (42-76); Total Cells Counted 100
[2021-11-02 17:10] LABS: Acanthocytes 1+; Platelet Estimate Normal
--- NOTE | 2021-11-02 18:47 | PC.NURSE ---
since arriving on the unit the pt has rested in bed. he is alert and oriented times 4, initially pt was confused as to the day of the week, but this has resolved. pt lung sounds contain audible wheezes with occasional crackles. bowel sounds are active in all quads. pt was initially on 50% venti mask but has since been able to be weaned to 4 lpm. pt o2 sats are currently stable at 92-95%
[2021-11-03] VITALS (10 sets, daily range): BP systolic 114–142; BP diastolic 75–92; PULSE 77–97; RESP 16–26; TEMP 36.3–36.8; O2SAT 90–96; BMI 31.8
--- NOTE | 2021-11-03 07:16 | EXP.PHA.VTE ---
[facility] Pharmacy VTE Monitoring Patient Demographics Admission date: 11/02/21 Report Date: 11/03/21 Time: 07:16 Patient Allergies No Known Allergies Allergy (Verified 10/27/21 10:45) Height: 1.75 m Weight: 97.522 kg Current Active Problems (Updated 11/02/21 @ 17:53 by Clint Alvarado MD) Atrial fibrillation with RVR (Acute) Status post bronchoscopy with bronchoalveolar lavage (Acute) Status post bronchoscopy with biopsy (Acute) Acute and chronic respiratory failure with hypoxia (Acute) Lung cancer metastatic to bone (Acute) COPD exacerbation (Acute) Nodule of left lung (Acute) Mediastinal lymphadenopathy (Acute) Hilar lymphadenopathy (Acute) History of coronary artery stent placement (Chronic) History of COVID-19 (Acute) HTN (hypertension) (Chronic) VTE Risk Labs: VTE Related Lab Results Hgb 15.4 g/dL (14.1-18.0) 11/02/21 15:50 Hct 49.0 % (42.0-52.0) 11/02/21 15:50 Plt Count 226 K/mm3 (142-424) 11/02/21 15:50 BUN 27 mg/dl (9-20) H 11/02/21 15:50 Creatinine 1.50 mg/dl (0.66-1.25) H 11/02/21 15:50 Estimated Creat Clear 63 mL/min (50-200) 11/02/21 15:50 Was VTE Risk Assessment Performed: Yes VTE Score: 3 VTE Risk Level: Low Risk Clinical Trial Participant: No Prophylaxis VTE Prophylaxis Ordered?: Yes Types of VTE Prophylaxis: TEDS Knee High Location of Applied Device: Bilateral Lower Extremeties
--- NOTE | 2021-11-03 09:16 | HMH.PHAINT1 ---
Pharmacy Intervention Comments: Home medication reconciliation completed by interviewing patient and speaking with outpatient pharmacy to confirm last dates of fills.
--- NOTE | 2021-11-03 09:25 | EXP.PN ---
Subjective *Date: 11/03/21 *Time: 13:25 Interval history: Patient states he is much better today. He slept until 3 AM and thought this was great. He is eating without difficulty. He remains on O2 per nasal cannula at 4 to 5 L/min with O2 sat this morning at 92%. Monitor continues to show sinus rhythm. Exam Data for Last 24 hours Vital signs and Labs for Last 24 Hours: Temp Pulse Resp BP Pulse Ox FiO2 98.1 F 83 21 119/87 92 L 55 11/03/21 04:00 11/03/21 08:00 11/03/21 06:00 11/03/21 08:00 11/03/21 08:00 11/02/21 18:03 Laboratory Results - last 24 hr 11/02/21 11:03: Specimen Source Right radial, O2 % 4l, ABG pH 7.49 H, ABG pCO2 30.0 L, ABG pO2 59.2 L, ABG HCO3 22.2, ABG Total CO2 23.2, ABG O2 Saturation 92, ABG Base Excess -1.1, Kirit Test Acceptable 11/02/21 14:40: SARS-CoV-2 (PCR) Not detected, Influenza A Untype (PCR) Not detected, Influenza Type B (PCR) Not detected 11/02/21 15:50: WBC 17.9 H, RBC 5.50, Hgb 15.4, Hct 49.0, MCV 89.1, MCH 27.9, MCHC 31.4 L, RDW 14.3, Plt Count 226, MPV 8.3, Neut % (Auto) 90.0 H, Lymph % (Auto) 4.5 L, [place] % (Auto) 3.2, Eos % (Auto) 2.1, Baso % (Auto) 0.2, Neut # (Auto) 16.1 H, Lymph # (Auto) 0.8, [place] # (Auto) 0.6, Eos # (Auto) 0.4, Baso # (Auto) 0.0, Total Counted 100, Neutrophils % (Manual) 95 H, Lymphocytes % (Manual) 5 L, Platelet Estimate Normal, Acanthocytes (Spur) 1+ 11/02/21 15:50: Sodium 137, Potassium 5.1, Chloride 101, Carbon Dioxide 27, Anion Gap 14.1, BUN 27 H, Creatinine 1.50 H, Estimated Creat Clear 63, Estimated GFR 46 L, Est GFR ( Amer) 56 L, Glucose 119 H, Calcium 8.7, Total Bilirubin 0.6, AST 25, ALT 35, Alkaline Phosphatase 120, Troponin I 0.01, Total Protein 5.9 L, Albumin 2.9 L, Globulin 3.0, Albumin/Globulin Ratio 1.0 L, TSH 0.76 I & O for Last 24 hours: Intake & Output 10/31/21 11/01/21 11/02/21 11/03/21 11:59 11:59 11:59 11:59 Intake Total 1184 / 1184 Output Total 800 / 800 Balance 384 / 384 Weight 215 lb Microbiology Reports for the Last 24 Hours: Microbiology 11/02/21 14:00 Bronchial Washings - Bronchial Gram Stain - Final Constitutional Constitutional: no acute distress Comments: Sitting on the bedside and appears comfortable. He is soft-spoken today. *Routine Respiratory Exam Respiratory: Present rhonchi (Bilateral scattered rhonchi. Much improved air exchange today.) *Routine Cardiovascular Exam Cardiovascular: Present RRR (Monitor showing sinus rhythm) *Routine Abdominal Exam Abdominal: Present soft and normoactive bowel sounds; Absent tenderness *Routine Extremities Exam Extremities: Absent edema or calf tenderness *Routine Neurological Exam Neurological: Present alert and oriented X3 Assessment and Plan *Assessment and plan (1) Atrial fibrillation with RVR: Status: Acute Category: Medical Code(s): I48.91 - Unspecified atrial fibrillation (2) Status post bronchoscopy with bronchoalveolar lavage: Status: Acute Category: Surgical Code(s): Z98.890 - Other specified postprocedural states (3) Status post bronchoscopy with biopsy: Status: Acute Category: Surgical Code(s): Z98.890 - Other specified postprocedural states (4) Acute and chronic respiratory failure with hypoxia: Status: Acute Category: Medical Code(s): J96.21 - Acute and chronic respiratory failure with hypoxia (5) Lung cancer metastatic to bone: Status: Acute Category: Medical Code(s): C34.90 - Malignant neoplasm of unspecified part of unspecified bronchus or lung; C79.51 - Secondary malignant neoplasm of bone (6) COPD exacerbation: Status: Acute Category: Medical Code(s): J44.1 - Chronic obstructive pulmonary disease with (acute) exacerbation (7) Mediastinal lymphadenopathy: Status: Acute Category: Medical Code(s): R59.0 - Localized enlarged lymph nodes (8) History of coronary artery stent placement:
--- NOTE | 2021-11-03 10:01 | EXP.CARD.CON ---
History of Present Illness History of Present Illness Consult date: 11/03/21 Requesting physician: Clint Alvarado Consult reason: atrial fibrillation Chief complaint: A. fib post procedure Additional Medical History:: 1. Cancer in the lung, liver and stomach per patient, 10/2021 A. CTA of the chest 10/20/2021, confluent mediastinal mass concerning for neoplasm. Spiculated mass in the left lung apex concerning for malignancy. B. PET scan, 11/02/2021, hypermetabolic activity in the pancreatic or peripancreatic area, medial central liver, left lower lobe and medial left upper lobe and multiple small osseous foci.. 2. Coronary artery disease with Juancarlos Myoview, 03/27/2020, no ischemia with EF 54% A. [facility], 04/11/2020, ANGIOGRAPHIC RESULTS The left main artery Normal The left anterior descending artery Is proximally normal.? 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 This gives rise to a large ramus intermedius which is free of disease The right coronary artery Nondominant with proximal and mid vessel 10 to 20% stenoses The HO ventriculogram reveals Preserved at 55% The left ventricular end-diastolic pressure 15 mmHg IMPRESSION Patent coronary arteries as described above with an inconsequential myocardial bridge Preserved ejection fraction Borderline elevated LVEDP 3. Hypertension A. Echocardiogram, 03/27/2020, biatrial enlargement, normal LV size, mild concentric LVH, EF 55% with no regional WMA, grade 1 diastolic dysfunction. Mildly enlarged RV with normal contractility. Mild MR, TR 4. Isolated episode of atrial fibrillation postop with hypoxemia, 11/02/2021. Resolved with IV beta-maury therapy. History of present illness: 71-year-old white male who underwent endoscopic bronchial biopsy yesterday had postop hypoxiemia with subsequent episode of atrial fibrillation that resolved with IV beta-maury therapy along with noninvasive supplemental oxygen. Recently hospitalized earlier this month for COVID-pneumonia during which time he was found to have lung mass suspicious for cancer. PET scan last week shows multiple areas of presumed metastatic disease in the lung, liver, pancreas and bone. Patient has had some hemoptysis postprocedure. He notes that he has an appointment with oncology in 2 days to discuss options. Patient has no prior history of atrial fibrillation and prior cardiac work-up included cardiac catheterization last year showing mild disease with a myocardial bridge of no clinical significance. Patient has been on carvedilol without complaint of chest pain since then. Overnight telemetry shows continued sinus rhythm with occasional PACs and PVCs. [facility] Medical History (Updated 11/02/21 @ 17:53 by Clint Alvarado MD) Acquired equinus deformity of both feet Acquired hammertoes of both feet Acute and chronic respiratory failure with hypoxia Calcaneal spur of both feet COPD exacerbation GERD (gastroesophageal reflux disease) Hallux rigidus of left foot Heart attack Hilar lymphadenopathy History of skin cancer Hypertension Hypertension Kidney stones Lung cancer metastatic to bone Mediastinal lymphadenopathy Nodule of left lung Nodule of left lung Obesity, Class I, BMI 30-34.9 Osteoarthritis of both feet Plantar fasciitis of left foot Pneumonia Prostate asymmetry Respiratory failure, acute Surgical History (Updated 11/02/21 @ 16:36 by Adry Jennings APRN) H/O right heart catheterization History of coronary artery stent placement History of hernia repair History of surgical removal of skin lesion Family History Diabetes Cancer Brother Mother Social History (Updated 11/02/21 @ 16:04 by Kezia Nix RN) Smoking Status: Former smoker alcohol intake: never substance use type: denies
--- NOTE | 2021-11-03 10:24 | EXP.PULM.PN ---
Subjective *Date: 11/03/21 *Time: 10:24 Interval history: No acute respiratory events overnight. Admits continued improvement in his symptoms. Still needing nasal cannula oxygen supplementation. Pulmonology Exam Inpatient Vital signs and Labs for Last 24 Hours: Temp Pulse Resp BP Pulse Ox FiO2 98.1 F 83 21 119/87 92 L 55 11/03/21 04:00 11/03/21 08:00 11/03/21 06:00 11/03/21 08:00 11/03/21 08:00 11/02/21 18:03 Laboratory Results - last 24 hr 11/02/21 11:03: Specimen Source Right radial, O2 % 4l, ABG pH 7.49 H, ABG pCO2 30.0 L, ABG pO2 59.2 L, ABG HCO3 22.2, ABG Total CO2 23.2, ABG O2 Saturation 92, ABG Base Excess -1.1, Kirit Test Acceptable 11/02/21 14:40: SARS-CoV-2 (PCR) Not detected, Influenza A Untype (PCR) Not detected, Influenza Type B (PCR) Not detected 11/02/21 15:50: WBC 17.9 H, RBC 5.50, Hgb 15.4, Hct 49.0, MCV 89.1, MCH 27.9, MCHC 31.4 L, RDW 14.3, Plt Count 226, MPV 8.3, Neut % (Auto) 90.0 H, Lymph % (Auto) 4.5 L, [place] % (Auto) 3.2, Eos % (Auto) 2.1, Baso % (Auto) 0.2, Neut # (Auto) 16.1 H, Lymph # (Auto) 0.8, [place] # (Auto) 0.6, Eos # (Auto) 0.4, Baso # (Auto) 0.0, Total Counted 100, Neutrophils % (Manual) 95 H, Lymphocytes % (Manual) 5 L, Platelet Estimate Normal, Acanthocytes (Spur) 1+ 11/02/21 15:50: Sodium 137, Potassium 5.1, Chloride 101, Carbon Dioxide 27, Anion Gap 14.1, BUN 27 H, Creatinine 1.50 H, Estimated Creat Clear 63, Estimated GFR 46 L, Est GFR ( Amer) 56 L, Glucose 119 H, Calcium 8.7, Total Bilirubin 0.6, AST 25, ALT 35, Alkaline Phosphatase 120, Troponin I 0.01, Total Protein 5.9 L, Albumin 2.9 L, Globulin 3.0, Albumin/Globulin Ratio 1.0 L, TSH 0.76 I & O for Labs for Last 24 Hours: Intake & Output 10/31/21 11/01/21 11/02/21 11/03/21 23:59 23:59 23:59 23:59 Intake Total 740 / 740 684 / 684 Output Total 400 / 400 400 / 400 Balance 340 / 340 284 / 284 Weight 218 lb 215 lb Microbiology Reports for the Last 24 Hours: Microbiology 11/02/21 14:00 Bronchial Washings - Bronchial Gram Stain - Final Constitutional: Present mild distress Head: Present normocephalic and atraumatic ENT: Present normal exam, normal oropharynx and mucous membranes moist Neck: Present normal inspection and full ROM Respiratory: Present respiratory distress, rhonchi and able to speak in complete sentences; Absent wheezes or crackles Cardiac: Present S1/S2, Tachycardia and radial pulses present GI: Present soft and distention; Absent tenderness or guarding Skin: Present intact; Absent cyanosis or jaundice Neuro: Present alert, awake and oriented x 3 Extremities: Present normal inspection; Absent clubbing or cyanosis Psychiatric: Present normal affect and cooperative Assessment and Plan *Assessment and plan (1) Atrial fibrillation with RVR: Status: Acute Category: Medical Code(s): I48.91 - Unspecified atrial fibrillation (2) Status post bronchoscopy with bronchoalveolar lavage: Status: Acute Category: Surgical Code(s): Z98.890 - Other specified postprocedural states (3) Lung cancer metastatic to bone: Status: Acute Category: Medical Code(s): C34.90 - Malignant neoplasm of unspecified part of unspecified bronchus or lung; C79.51 - Secondary malignant neoplasm of bone (4) Acute and chronic respiratory failure with hypoxia: Status: Acute Category: Medical Code(s): J96.21 - Acute and chronic respiratory failure with hypoxia Plan #Lung cancer metastatic to bone: #Acute on chronic hypoxic respiratory failure: 71-year-old male greater than [id number] smoking history lung nodule lymphadenopathy. Presented previously planned prolonged postoperative course needing noninvasive ventilator therapy eventually needed hospital admission for overnight observation. Chest x-ray from this morning prior to procedure did not show any dense consolidation. Continue to show worsening interstitial process worrisome for progressive lymphang
--- NOTE | 2021-11-03 11:45 | PC.NURSE ---
Pt's O2 saturations are 86% on RA
--- NOTE | 2021-11-03 12:55 | P.PNANES_ITS ---
[facility] Anesthesia Record Part II Anesthesia Record Part II Discharge Time: 14:17 Destination: Second Floor PACU nurse assessment reviewed?: Yes Patient Condition:: Good Anesthesia Complications:: None Swallowing reflex intact?: Yes Cyanosis?: No Blood Pressure: 126/92 Pulse Rate: 97 Temperature: 97.3 F Mental Status: Alert & Oriented Pain level:: 0 Nausea and/or vomitting:: None Intake, IV Amount: 0
--- NOTE | 2021-11-05 11:57 | CARE MANAGER ---
Attempted to contact patient related to hospital discharge x2. Left VM message. CAROL Benito
--- NOTE | 2021-11-08 22:32 | EXP.DC.SUM ---
General Admission date:: 11/02/21 Discharge date: 11/03/21 HPI HPI HPI: Mr. Hager is a 71-year-old male patient with a history of CAD, HTN andrecent COVID pneumonia hospitalized 10/21 through 10/22/2021. He was sent home on Augmentin. With CTA of the chest during this admission a 3 cm mass was noted and at discharge bronchoscopy and PET scan were ordered. He was also started on Levaquin after completion of the Augmentin on 10/29/2021. He had an EBUS with FNA's today by Dr. Chahal complicated by hypoxic episodes. He was found to need noninvasive ventilatory support and was admitted overnight for observation. During or after procedure he did develop some atrial fibrillation with a rapid ventricular response which has resolved. He was weaned from BiPAP to Ventimask at 50% FiO2. At time of this exam patient was noted to be in sinus rhythm with frequent PACs and occasional PVCs. He appears comfortable. To note he has also completed the PET scan which revealed abdominal lymphadenopathy with pleural/pericardial effusion concerning for stage IV cancer. He remains in sinus rhythm. Hospital Course Hospital Course Hospital Course: Patient was restarted back on his Coreg, which she had not had for few days. Pulmonology consulted with Dr. Alvarado for admission after events in the PACU and asked for the patient to be admitted for observation. He converted to normal sinus rhythm after receiving IV metoprolol and arriving to the floor. He was able to sit on the side of the bed and eat and felt much better. He denied any chest pain or palpitations. His Coreg was resumed. By 11/03/2021 he was feeling much better. He remained on oxygen per nasal cannula at 4 to 5 L/min with saturations in the 90s. He remained in sinus rhythm. He was seen by cardiology and due to his diagnosis of metastatic lung cancer, they wanted to hold off on anticoagulation due to possible need for surgery. He was placed on a 48-hour Holter monitor. He was also seen in consultation by pulmonology and it was felt he could be discharged home on duo nebs every 6 hours along with budesonide every 12 hours,. He will need to continue nasal oxygen supplementation and will follow up with oncology on 11/05/2021. He did not feel he needed to be initiated on antibiotics. Exam Data for Last 24 hours Vital signs and Labs for Last 24 Hours: Temp Pulse Resp BP Pulse Ox FiO2 97.3 F L 97 H 16 126/92 H 94 L 55 11/03/21 12:56 11/03/21 12:56 11/03/21 12:00 11/03/21 12:56 11/03/21 12:00 11/02/21 18:03 Laboratory Results - last 24 hr 11/02/21 14:00: BAL Total Cell Count Comment Narrative: Constitutional Constitutional: no acute distress *Routine HEENT Exam Head: Present normocephalic and atraumatic Eye: Present PERRL ENT: Present mucous membranes moist; Absent oropharynx clear (Oropharyngeal clear exudate) *Routine Neck Exam Neck: Present supple; Absent lymphadenopathy or thyromegaly *Routine Respiratory Exam Respiratory: Present wheezes and crackles Comments: Scattered wheezes and crackles throughout posteriorly *Routine Cardiovascular Exam Cardiovascular: Present RRR and ectopic Comments: Monitor showing sinus rhythm with frequent PACs *Routine Abdominal Exam Abdominal: Present soft and normoactive bowel sounds; Absent tenderness or distended *Routine Rectal Exam Rectal:: deferred *Routine Genitalia Exam Genitalia:: deferred *Routine Extremities Exam Extremities: Present full ROM; Absent edema or calf tenderness *Routine Neurological Exam Neurological: Present alert and oriented X3 Results Data Completed and Pending Labs on day of discharge: Labs from last 24 hours 11/02/21 14:00 BAL Total Cell Count Comment Preliminary micro results at discharge 11/02/21 14:00 - Preliminary Bronchial Washings - Bronchial - Preliminary - Preliminary DS: Diagnosis Discharge Diagnosis (1) Atrial fibrillation with RVR: Status: Resolved
== END 2021-11-03 13:22 | disposition home or self-care (01) ==
LOC: 2ND 14:01
PROVIDERS: Internal Medicine Pulmonary Disease; Student in an Organized Health Care Education/Training Program; Admitting Provider Family Medicine; PCP Nurse Practitioner Family; Visit Provider Family Medicine
DX: C34.12 Malignant neoplasm of upper lobe, left bronchus or lung (principal); I48.91 Unspecified atrial fibrillation; J96.21 Acute and chronic respiratory failure with hypoxia; C79.51 Secondary malignant neoplasm of bone; Z86.16 Personal history of COVID-19; Z95.5 Presence of coronary angioplasty implant and graft; I10 Essential (primary) hypertension; Z87.891 Personal history of nicotine dependence; Z79.899 Other long term (current) drug therapy
CPT/HCPCS: 31624; 31625; G0378; 71045; 80053; 82803; 84443; 84484; 85007; 85025; 87070; 87102; 87116; 87186; 87205; 87206; 89051; 93005; 93225; 93226; 94640; 94660; 94760; 94761; C9803; J2405; U0003; U0005

== ENCOUNTER 2021-11-06 19:32 | Inpatient (IN) | payer MEDICARE, SELFPAY ==
[2021-11-06] VITALS (18 sets, daily range): BP systolic 67–181; BP diastolic 28–139; PULSE 141–159; RESP 18–28; TEMP 36.6; O2SAT 94–97; BMI 30.1
--- NOTE | 2021-11-06 19:29 | ECG_ITS ---
APPROVED REPORT Exam: Resting ECG HR:146 bpm ECG Measurements Heart Rate 146 AXES QRSd 104 QRS 68 QT 295 T 38 QTc 379 Conclusion ATRIAL FIBRILLATION WITH RAPID VENTRICULAR RESPONSE INCOMPLETE RIGHT BUNDLE BRANCH BLOCK [90+ ms QRS DURATION, TERMINAL R IN V1/V2, 40+ ms S IN I/aVL/V4/V5/V6] ABNORMAL RHYTHM ECG UNCONFIRMED REPORT Electronically signed by : Lopez Richardson MD 11/07/2021 16:04:51
--- NOTE | 2021-11-06 19:41 | XR_ITS ---
PROCEDURE INFORMATION: Exam: XR Chest Exam date and time: 11/06/2021 8:00 PM Age: 71 years old Clinical indication: Shortness of breath; Additional info: SOA, chest pain TECHNIQUE: Imaging protocol: Radiologic exam of the chest. Views: 1 view. COMPARISON: CR XR CHEST PORTABLE 11/02/2021 1:43 PM FINDINGS: Lungs: Extensive bilateral interstitial opacities in both lungs findings concerning for severe pneumonia. Underlying chronic interstitial lung disease. Pulmonary fibrosis. Pleural spaces: Mild bilateral pleural effusions. Heart/Mediastinum: Cardiomegaly. Bones/joints: Unremarkable. IMPRESSION: Extensive bilateral pneumonia.
[2021-11-06 19:48] LABS: Basophils # 0.2 K/mm3 (0-0.2); Eosinophils # 0.3 K/mm3 (0.0-0.4); Eosinophils % 1.2 % (0.1-12.0); Hematocrit 51.4 % (42.0-52.0); Hemoglobin 16.9 g/dL (14.1-18.0); Lymphocytes # 1.9 K/mm3 (0.7-4.5); Lymphocytes % 8.9 % (10-50); Mean Corpuscular HGB Conc 32.8 g/dL (31.8-35.4); Mean Corpuscular Hemoglobin 28.6 pg (27.0-31.2); Mean Corpuscular Volume 87.1 fl (80-94); Mean Platelet Volume 8.9 fl (7.4-10.4); Monocytes # 0.9 K/mm3 (0.1-1.0); Monocytes % 4.3 % (1.7-9.3); Neutrophils # 17.9 K/mm3 (1.8-7.8); Neutrophils % 84.6 % (37.0-80.0); Platelet Count 198 K/mm3 (142-424); White Blood Count 21.2 K/mm3 (4.8-10.8)
[2021-11-06 19:50] LABS: MANUAL DIFFERENTIAL MANUAL DIFFERENTIAL (MANUAL DIFF)
[2021-11-06 19:50] LABS: ABG Base Excess -1.7 mmol/L (-2.4-2.3); ABG HCO3 21.6 mmhg (22.0-26.0); ABG Oxygen Saturation 99 % (90-100); ABG PH 7.49 mmol/L (7.35-7.45); ABG PO2 118.4 mmhg (80-100); ABG TCO2 22.5 mmhg (23-27)
[2021-11-06 19:52] LABS: Allen's Test Acceptable; Oxygen 100 %; Source Right Radial
[2021-11-06 19:53] LABS: Chloride 98 mmol/L (98-107); Sodium 136 mmol/L (136-145)
[2021-11-06 19:56] LABS: Anion Gap 14.1 mEq/L (5-15); Blood Urea Nitrogen 40 mg/dl (9-20); Calcium 8.7 mg/dl (8.4-10.2); Carbon Dioxide 30 mmol/L (22.0-30.0); Creatinine Clearance Estimated 48 mL/min (50-200); Estimated Glomerular Filt Rate 35 ml/min (>60); GFR (African American) 42 ML/MIN (>60); Glucose 159 mg/dl (74-100)
--- NOTE | 2021-11-06 20:04 | ECG_ITS ---
APPROVED REPORT Exam: Resting ECG HR:156 bpm ECG Measurements Heart Rate 156 AXES QRSd 114 QRS 64 QT 285 T 16 QTc 373 Conclusion ATRIAL FLUTTER/TACHYCARDIA WITH RAPID VENTRICULAR RESPONSE INCOMPLETE RIGHT BUNDLE BRANCH BLOCK [90+ ms QRS DURATION, TERMINAL R IN V1/V2, 40+ ms S IN I/aVL/V4/V5/V6] PROBABLE INFERIOR MYOCARDIAL INFARCTION , OF INDETERMINATE AGE [35 ms Q WAVE IN II/aVF] CRITICAL TEST RESULT UNCONFIRMED REPORT Electronically signed by : Lopez Richardson MD 11/07/2021 16:04:46
--- NOTE | 2021-11-06 20:06 | PC.NURSE ---
Pt placed on 50% venti. O2 at 96% after 10min
[2021-11-06 20:09] LABS: Troponin I 0.08 ng/ml (0.00-0.034)
[2021-11-06 20:10] LABS: Potassium 6.1 mmoL/L (3.5-5.1)
--- NOTE | 2021-11-06 20:16 | HMH.EDSOB ---
Discharge Plan Disposition Patient Disposition: Admitted As Inpatient Chief Complaint: Shortness of Breath/Dyspnea Clinical Impressions Clinical Impression: Pneumonia, Lung cancer metastatic to bone, Acute and chronic respiratory failure with hypoxia, Status post bronchoscopy with biopsy, Status post bronchoscopy with bronchoalveolar lavage, Atrial fibrillation with RVR, Congestive heart failure, CHINEDU (acute kidney injury), Severe sepsis with acute organ dysfunction, Septic shock Discharge ED Provider: John Elkins Resp/SOB HPI General Chief Complaint: Shortness of Breath/Dyspnea Stated Complaint: SOA Time Seen by Provider: 11/06/21 20:00 Mode of Arrival: EMS Source of Information: Patient, Spouse and Medical Record Limitations: No Limitations Description of Symptoms (Recalled from ER Triage Doc. by RN): Pt brought in via EMS for SOA. Pt has known stage 4 lung cancer. Pt has had increased SOA for 3 weeks. Today we was unable to get to and from bathroom without severe SOA and weakness. EMS reports pt was on 3LNC of home O2 with sats in the low 80's. Pt arrived on 100% non-rebreather with O2 sat at 97%. History of Present Illness has progressive sob with known a fib and stage 4 lung cancer - more sob over the last few days with recent admit MD Complaint: shortness of breath Onset (ago): day(s) Context: other (known lung cancer ) Severity: severe Consistency/Duration: constant Known history of: COPD, congestive heart failure and other (lung cancer ) Associated symptoms: denies other symptoms Related Data Home oxygen amount: 3 liters Home Medications Medication Instructions Recorded Confirmed aspirin 81 mg tablet,delayed 81 mg PO DAILY Heart disease 03/18/20 11/02/21 release (Adult Low Dose Aspirin) atorvastatin 80 mg tablet 80 mg PO HS Cholesterol 03/18/20 11/03/21 carvedilol 12.5 mg tablet 12.5 mg PO BID BLOOD PRESSURE 03/31/20 11/03/21 esomeprazole magnesium 20 mg 20 mg PO DAILY acid reflux 09/22/21 11/03/21 capsule,delayed release fluticasone fur. 100 mcg-umeclid 1 puff inhalation DAILY soa 10/29/21 11/02/21 62.5 mcg-vilant 25 mcg inhalat.powder (Trelegy Ellipta) Previous Rx's Medication Instructions Recorded losartan 50 mg tablet 50 mg PO DAILY High blood pressure 10/05/21 #30 tabs albuterol sulfate 90 mcg/actuation 2 puff inhalation Q4HP PRN 10/22/21 aerosol inhaler (Ventolin HFA) Shortness Of Breath #1 g ipratropium 0.5 mg-albuterol 3 mg 3 ml inhalation QID PRN shortness 10/27/21 (2.5 mg base)/3 mL nebulization of breath or wheezing 90 days #360 soln mL Allergies Allergy/AdvReac Type Severity Reaction Status Date / Time No Known Allergies Allergy Verified 10/27/21 10:45 [facility] Medical History (Updated 11/06/21 @ 22:24 by John Elkins MD) Acquired equinus deformity of both feet Acquired hammertoes of both feet Acute and chronic respiratory failure with hypoxia Calcaneal spur of both feet COPD exacerbation GERD (gastroesophageal reflux disease) Hallux rigidus of left foot Heart attack Hilar lymphadenopathy History of skin cancer Hypertension Hypertension Kidney stones Lung cancer metastatic to bone Mediastinal lymphadenopathy Nodule of left lung Nodule of left lung Obesity, Class I, BMI 30-34.9 Osteoarthritis of both feet Plantar fasciitis of left foot Pneumonia Prostate asymmetry Respiratory failure, acute Surgical History (Updated 11/06/21 @ 22:24 by John Elkins MD) H/O right heart catheterization History of coronary artery stent placement History of hernia repair History of surgical removal of skin lesion Family History Diabetes Cancer Brother Mother Social History (Updated 11/02/21 @ 16:04 by Kezia Nix RN) Smoking Status: Never smoker alcohol intake: never substance use type: denies use current occupational status: employed Travel in the last 8 weeks: None house
[2021-11-06 20:22] LABS: Coronavirus 19, PCR Not Detected (NotDetected); Influenza A, PCR Not Detected (NotDetected); Influenza B, PCR Not Detected (NotDetected)
[2021-11-06 20:27] LABS: Alanine Aminotransferase 37 U/L (12-78); Albumin Level 2.8 g/dl (3.5-5.0); Alkaline Phosphatase 113 U/L (38-126); Aspartate Amino Transferase 27 U/L (17-59); Bilirubin,Direct 0.1 mg/dl (0.0-0.4); Bilirubin,Indirect 0.9 mg/dL (0.0-0.9); Bilirubin,Unconjugated 0.9 mg/dL (0.0-1.1); Total Protein,Serum 5.8 g/dl (6.3-8.2)
[2021-11-06 20:28] LABS: Magnesium 2.2 mg/dl (1.6-2.3)
[2021-11-06 20:33] LABS: C-Reactive Protein 157.3 mg/L (0-4)
--- NOTE | 2021-11-06 20:37 | PC.NURSE ---
RT at BS to administer breathing treatment
[2021-11-06 20:39] LABS: NT Pro Brain Natriuretic Pep. 2720 pg/mL (0-125)
[2021-11-06 21:08] LABS: Eosinophils % 1 % (0-3); Lymphocytes % 11 % (10-50); Monocytes % 4 % (2-9); Neutrophils % 84 % (42-76); Platelet Estimate Normal; RBC Morphology Normal; Total Cells Counted 100
--- NOTE | 2021-11-06 21:10 | PC.NURSE ---
ER speaking with Dr Mckinnon at this time
--- NOTE | 2021-11-06 21:17 | PC.NURSE ---
paged dr sánchez at this time
[2021-11-06 21:26] LABS: Erythrocyte Sedimentation Rate 12 mm/hr (0-20)
--- NOTE | 2021-11-06 21:26 | PC.NURSE ---
ER speaking with Dr sánchez at this time
--- NOTE | 2021-11-06 22:07 | PC.NURSE ---
Levo gtt increased to 10mcg/min at this time by CAROL Valles d/t BP 67/49
--- NOTE | 2021-11-06 22:35 | PC.NURSE ---
Levophed gtt increased to 12mcg/min at this time BP 86/51
--- NOTE | 2021-11-06 23:04 | PC.NURSE ---
Levophed increased to 14mcg/min dt BP of 78/60
[2021-11-06 23:23] LABS: Reflex Lactic Add Lactic Reflex
[2021-11-06 23:56] LABS: Lactic Acid Follow Up (RFLX 1) 2.5 mmol/L (0.7-2.1)
[2021-11-07] VITALS (21 sets, daily range): BP systolic 92–121; BP diastolic 40–86; PULSE 98–158; RESP 14–26; TEMP 36.1–36.6; O2SAT 91–97; BMI 31.4
[2021-11-07 00:04] LABS: Troponin I 0.08 ng/ml (0.00-0.034)
--- NOTE | 2021-11-07 00:19 | PC.NURSE ---
Pt went to the floor accompanied by CAROL Arrieta and DAISY.
--- NOTE | 2021-11-07 00:19 | PC.NURSE ---
pt arrived to floor via stretcher at this time
[2021-11-07 01:22] LABS: Reflex Lactic (2 hrs) Add Lactic Reflex
[2021-11-07 01:56] LABS: Lactic Acid Follow up (RFLX 2) 2.5 mmol/L (0.7-2.1)
[2021-11-07 06:53] LABS: Basophils # 0.1 K/mm3 (0-0.2); Basophils % 0.4 % (0.1-2.0); Eosinophils # 0.1 K/mm3 (0.0-0.4); Eosinophils % 0.2 % (0.1-12.0); Hemoglobin 15.4 g/dL (14.1-18.0); Lymphocytes # 2.1 K/mm3 (0.7-4.5); Lymphocytes % 9.2 % (10-50); Mean Corpuscular HGB Conc 32.2 g/dL (31.8-35.4); Mean Corpuscular Hemoglobin 28.2 pg (27.0-31.2); Mean Corpuscular Volume 87.7 fl (80-94); Mean Platelet Volume 9.3 fl (7.4-10.4); Monocytes # 1.3 K/mm3 (0.1-1.0); Monocytes % 5.8 % (1.7-9.3); Neutrophils # 19.4 K/mm3 (1.8-7.8); Neutrophils % 84.4 % (37.0-80.0); Platelet Count 178 K/mm3 (142-424); Red Blood Count 5.47 M/mm3 (4.60-6.20); Red Cell Distribution Width 14.1 % (11.5-17.5)
[2021-11-07 06:54] LABS: MANUAL DIFFERENTIAL MANUAL DIFFERENTIAL (MANUAL DIFF)
[2021-11-07 08:03] LABS: Lymphocytes % 6 % (10-50); Monocytes % 5 % (2-9); Neutrophils % 89 % (42-76); Total Cells Counted 100
[2021-11-07 08:04] LABS: Platelet Estimate Normal; RBC Morphology Normal
[2021-11-07 08:05] LABS: Chloride 106 mmol/L (98-107); Sodium 134 mmol/L (136-145)
[2021-11-07 08:06] LABS: Potassium 5.6 mmoL/L (3.5-5.1)
[2021-11-07 08:08] LABS: Blood Urea Nitrogen 44 mg/dl (9-20); Creatinine Clearance Estimated 64 mL/min (50-200); Estimated Glomerular Filt Rate 46 ml/min (>60); GFR (African American) 56 ML/MIN (>60)
[2021-11-07 08:09] LABS: Anion Gap 17.6 mEq/L (5-15); Calcium 7.5 mg/dl (8.4-10.2); Carbon Dioxide 16 mmol/L (22.0-30.0); Glucose 113 mg/dl (74-100)
--- NOTE | 2021-11-07 11:56 | HMH.PHAINT1 ---
Pharmacy Intervention Comments: MEDICATION RECONCILIATION COMPLETED ON PATIENT USING EXTERNAL FILL HISTORY FROM PHARMACY AND DISCHARGE SUMMARY FROM PREVIOUS ADMISSION. -JESSI ZARATE, DOND
--- NOTE | 2021-11-07 11:57 | P.CONPHA_ITS ---
[facility] Pharmacy VTE Monitoring Patient Demographics Admission date: 11/07/21 Report Date: 11/07/21 Time: 11:57 Patient Allergies No Known Allergies Allergy (Verified 11/07/21 02:03) Height: 1.78 m Weight: 99.7 kg Current Active Problems (Updated 11/07/21 @ 01:00 by Marques Sosa RN) Congestive heart failure (Acute) CHINEDU (acute kidney injury) (Acute) Severe sepsis with acute organ dysfunction (Acute) Septic shock (Acute) Pneumonia (Acute) Acute and chronic respiratory failure with hypoxia (Acute) Status post bronchoscopy with biopsy (Acute) Status post bronchoscopy with bronchoalveolar lavage (Acute) Atrial fibrillation with RVR (Acute) Lung cancer metastatic to bone (Acute) VTE Risk Labs: VTE Related Lab Results Hgb 15.4 g/dL (14.1-18.0) 11/07/21 05:15 Hct 48.0 % (42.0-52.0) 11/07/21 05:15 Plt Count 178 K/mm3 (142-424) 11/07/21 05:15 BUN 44 mg/dl (9-20) H 11/07/21 05:30 Creatinine 1.50 mg/dl (0.66-1.25) H D 11/07/21 05:30 Estimated Creat Clear 64 mL/min (50-200) 11/07/21 05:30 VTE Score: 7 VTE Risk Level: Moderate Risk Prophylaxis VTE Prophylaxis Ordered?: Yes Types of VTE Prophylaxis: TEDS Knee High Location of Applied Device: Bilateral Lower Extremeties
--- NOTE | 2021-11-07 16:41 | EXP.HP ---
History of Present Illness *Admission Date: 11/07/21 *Reason for visit:: shortness of breath *History of present illness: Mr. Hager is a 71-year-old white male who was recently found to have a 3 cm mass on the CT scan. He underwent bronchoscopy with EBUS on 11/02/2021 with diagnosis of lung cancer. He has also had a PET scan which shows abdominal lymphadenopathy and apparent pleural and pericardial involvement consistent with a diagnosis of stage IV lung cancer. He was hospitalized overnight after his bronchoscopy procedure with an episode of paroxysmal atrial fibrillation which resolved with metoprolol. He was discharged home on 11/03/2021 with plans to follow-up with oncology on 11/05/2021. Unfortunately, Dr. Sherman had to cancel her oncology clinic and he has not yet been seen. He presented to the emergency room last evening with progressive shortness of breath and weakness. He got to the point he could hardly get to the bathroom and back without extreme dyspnea. His O2 sats were dropping into the 80s despite using 5 L of home oxygen. He was brought back to the emergency room by ambulance. On work-up in the ER, he was found to have extensive bilateral pulmonary infiltrates on his chest x-ray consistent with pneumonia. His white count was elevated at 21,000. BUN and creatinine were both elevated above baseline. He was tachycardic and hypotensive. He trigered for severe sepsis and was given the sepsis fluid bolus in ER but remained hypotensive. He was started on a Levophed drip. He arrived to the floor with Levophed and on Vapotherm. Blood pressure and O2 sats have been stable through the night but he has remained tachycardic in the range of 130-150. This is despite receiving 2 doses of metoprolol along with a dose of digoxin. Cardiology has been consulted and recommended changing his drip from Levophed to esmolol and Mike-Synephrine. With this adjustment, his heart rate is running 110-120. [facility] Medical History (Updated 11/07/21 @ 17:24 by Clint Alvarado MD) Acquired equinus deformity of both feet Acquired hammertoes of both feet Acute and chronic respiratory failure with hypoxia Calcaneal spur of both feet COPD exacerbation GERD (gastroesophageal reflux disease) Hallux rigidus of left foot Heart attack Hilar lymphadenopathy History of COVID-19 History of skin cancer Hypertension Hypertension Kidney stones Lung cancer metastatic to bone Mediastinal lymphadenopathy Metastatic lung cancer (metastasis from lung to other site) Obesity, Class I, BMI 30-34.9 Osteoarthritis of both feet Plantar fasciitis of left foot Pneumonia Prostate asymmetry Pulmonary nodule Respiratory failure, acute Surgical History H/O right heart catheterization History of coronary artery stent placement History of hernia repair History of surgical removal of skin lesion Status post bronchoscopy with biopsy Status post bronchoscopy with bronchoalveolar lavage Family History Diabetes Cancer Brother Mother Social History (Updated 11/07/21 @ 02:02 by Zara Quach RN) Smoking Status: Never smoker alcohol intake: never substance use type: denies use current occupational status: employed Travel in the last 8 weeks: None household members: spouse housing: house marital status: 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
--- NOTE | 2021-11-07 17:39 | PC.NURSE ---
1739- Contacted Fei with nightwatch for vancomycin dosing, Fei states he will order appropriate dosing.
--- NOTE | 2021-11-07 18:25 | PC.NURSE ---
Patient has been restless this shift and has had a hard time getting comfortable or sleeping, remains on vapotherm, given morphine x1 this shift with good results, remains in afib per telemetry HR 85-120 this shift, esmolol infusing at 100mcg and anne infusing at 50mcg, patient alert and oriented x4, lung sounds diminished with exp rhonchi noted in upper lobes, abd soft and nontender, active bowel sounds in all quads, poor appetite, urine output minimal this shift, 1+ edema noted to ble, peripheral pulses 1+, denies any cp or soa at this time, vss, bed in lowest position with call light in reach, family at bedside.
[2021-11-08] VITALS (23 sets, daily range): BP systolic 97–129; BP diastolic 53–83; PULSE 78–130; RESP 16–24; TEMP 36.5–37.1; O2SAT 80–98; BMI 31.6
--- NOTE | 2021-11-08 05:09 | ECG_ITS ---
APPROVED REPORT Exam: Resting ECG HR:94 bpm ECG Measurements Heart Rate 94 AXES MN 130 P -7 QRSd 112 QRS 52 QT 367 T -17 QTc 419 Conclusion SINUS RHYTHM LOW QRS VOLTAGE IN PRECORDIAL LEADS [QRS DEFLECTION < 1.0 mV IN CHEST LEADS] INCOMPLETE RIGHT BUNDLE BRANCH BLOCK [90+ ms QRS DURATION, TERMINAL R IN V1/V2, 40+ ms S IN I/aVL/V4/V5/V6] POSSIBLE INFERIOR MYOCARDIAL INFARCTION , OF INDETERMINATE AGE [30 ms Q WAVE IN II/aVF] ABNORMAL ECG UNCONFIRMED REPORT Electronically signed by : Lopez Richardson MD 11/09/2021 20:07:55
--- NOTE | 2021-11-08 05:22 | PC.NURSE ---
Pt noted to have converted on telemetry. EKG obtained. Sinus rhythm. MD Mckinnon notified. New orders received to stop Esmolol gtt. give pt Bisoprolol 10 mg BID. also notified of pt c/o soa. Pt has only voided 100 ml total for shift. New orders received to give Lasix 40 mg IV daily. Xopenex 1.25 mg breathing Tx Q2 prn. Mike gtt is currently off at this time. Pt remains on Vapotherm 30L 50%. Call light at bedside.
--- NOTE | 2021-11-08 05:30 | PC.NURSE ---
Titration for Esmolol 0410 50 mcg/kg/min 0439 25 mcg/kg/min 0520 off Titration for Mike 0240 40 mcg/min 0435 20 mcg/min 0439 standby 0520 off
[2021-11-08 07:48] LABS: Basophils # 0.1 K/mm3 (0-0.2); Basophils % 0.2 % (0.1-2.0); Eosinophils # 0.2 K/mm3 (0.0-0.4); Eosinophils % 0.7 % (0.1-12.0); Hemoglobin 14.5 g/dL (14.1-18.0); Lymphocytes # 1.3 K/mm3 (0.7-4.5); Lymphocytes % 5.3 % (10-50); Mean Corpuscular Hemoglobin 28.5 pg (27.0-31.2); Mean Corpuscular Volume 86.4 fl (80-94); Mean Platelet Volume 9.8 fl (7.4-10.4); Monocytes # 0.8 K/mm3 (0.1-1.0); Monocytes % 3.4 % (1.7-9.3); Neutrophils # 21.6 K/mm3 (1.8-7.8); Neutrophils % 90.4 % (37.0-80.0); Platelet Count 150 K/mm3 (142-424); Red Cell Distribution Width 14.1 % (11.5-17.5); White Blood Count 23.9 K/mm3 (4.8-10.8)
[2021-11-08 07:53] LABS: MANUAL DIFFERENTIAL MANUAL DIFFERENTIAL (MANUAL DIFF)
[2021-11-08 08:44] LABS: Chloride 107 mmol/L (98-107); Sodium 133 mmol/L (136-145)
[2021-11-08 08:47] LABS: Alanine Aminotransferase 26 U/L (12-78); Albumin Level 2.5 g/dl (3.5-5.0); Alkaline Phosphatase 82 U/L (38-126); Anion Gap 18.1 mEq/L (5-15); Aspartate Amino Transferase 45 U/L (17-59); Bilirubin,Total 0.7 mg/dl (0.2-1.3); Blood Urea Nitrogen 66 mg/dl (9-20); Calcium 7.6 mg/dl (8.4-10.2); Carbon Dioxide 14 mmol/L (22.0-30.0); Creatinine Clearance Estimated 51 mL/min (50-200); Estimated Glomerular Filt Rate 35 ml/min (>60); GFR (African American) 42 ML/MIN (>60); Globulin 2.6 g/dL (1.3-3.2); Glucose 146 mg/dl (74-100); Total Protein,Serum 5.1 g/dl (6.3-8.2)
[2021-11-08 08:49] LABS: Potassium 6.1 mmoL/L (3.5-5.1)
[2021-11-08 09:04] LABS: Lymphocytes % 7 % (10-50); Monocytes % 1 % (2-9); Neutrophils % 92 % (42-76); Platelet Estimate Slight Decrease; RBC Morphology Normal; Total Cells Counted 100
--- NOTE | 2021-11-08 09:09 | EXP.PHA.CONS ---
Pharmacy Consult Date: 11/08/21 Time: 09:09 Referring provider: DR. HANNA Reason for Consult:: VANCOMYCIN DOSING Allergies Allergy/AdvReac Type Severity Reaction Status Date / Time No Known Allergies Allergy Verified 11/07/21 02:03 Home Medications Medication Instructions Recorded Confirmed Type aspirin 81 mg tablet,delayed 81 mg PO DAILY Heart disease 03/18/20 11/07/21 History release (Adult Low Dose Aspirin) atorvastatin 80 mg tablet 80 mg PO HS Cholesterol 03/18/20 11/07/21 History carvedilol 12.5 mg tablet 12.5 mg PO BID BLOOD PRESSURE 03/31/20 11/07/21 History esomeprazole magnesium 20 mg 20 mg PO DAILY acid reflux 09/22/21 11/07/21 History capsule,delayed release losartan 50 mg tablet 50 mg PO DAILY High blood pressure 10/05/21 11/07/21 Rx #30 tabs albuterol sulfate 90 mcg/actuation 2 puff inhalation Q4HP PRN 10/22/21 11/07/21 Rx aerosol inhaler (Ventolin HFA) Shortness Of Breath #1 g ipratropium 0.5 mg-albuterol 3 mg 3 ml inhalation QID PRN shortness 10/27/21 11/07/21 Rx (2.5 mg base)/3 mL nebulization of breath or wheezing 90 days #360 soln mL fluticasone fur. 100 mcg-umeclid 1 puff inhalation DAILY soa 10/29/21 11/07/21 History 62.5 mcg-vilant 25 mcg inhalat.powder (Trelegy Ellipta) New Prescriptions to Start Prescriptions: Height: 1.78 m Weight: 100.4 kg Laboratory Results:: Laboratory Results - last 24 hr 11/08/21 07:31: WBC 23.9 H*, RBC 5.10, Hgb 14.5, Hct 44.0, MCV 86.4, MCH 28.5, MCHC 33.0, RDW 14.1, Plt Count 150, MPV 9.8, Neut % (Auto) 90.4 H, Lymph % (Auto) 5.3 L, [place] % (Auto) 3.4, Eos % (Auto) 0.7, Baso % (Auto) 0.2, Neut # (Auto) 21.6 H, Lymph # (Auto) 1.3, [place] # (Auto) 0.8, Eos # (Auto) 0.2, Baso # (Auto) 0.1, Total Counted 100, Neutrophils % (Manual) 92 H, Lymphocytes % (Manual) 7 L, Monocytes % (Manual) 1 L, Platelet Estimate Slight decrease, RBC Morphology Normal 11/08/21 07:31: Sodium 133 L, Potassium 6.1 H*, Chloride 107, Carbon Dioxide 14 L, Anion Gap 18.1 H, BUN 66 H D, Creatinine 1.90 H D, Estimated Creat Clear 51, Estimated GFR 35 L, Est GFR ( Amer) 42 L D, Glucose 146 H, Calcium 7.6 L, Total Bilirubin 0.7, AST 45 D, ALT 26 D, Alkaline Phosphatase 82, Total Protein 5.1 L, Albumin 2.5 L D, Globulin 2.6, Albumin/Globulin Ratio 1.0 L Medical History: Medical History (Updated 11/07/21 @ 17:24 by Clint Hanna MD) Acquired equinus deformity of both feet Acquired hammertoes of both feet Acute and chronic respiratory failure with hypoxia Calcaneal spur of both feet COPD exacerbation GERD (gastroesophageal reflux disease) Hallux rigidus of left foot Heart attack Hilar lymphadenopathy History of COVID-19 History of skin cancer Hypertension Hypertension Kidney stones Lung cancer metastatic to bone Mediastinal lymphadenopathy Metastatic lung cancer (metastasis from lung to other site) Obesity, Class I, BMI 30-34.9 Osteoarthritis of both feet Plantar fasciitis of left foot Pneumonia Prostate asymmetry Pulmonary nodule Respiratory failure, acute Assessment and Plan Assessment and plan all Dx Assessment and Plan for all problems:: Pharmacokinetic dosing service Objective: Patient: Floor: Age: 71 yo Serum creatinine: 1.90 mg/dL Height: 70.1 Inches Weight (kg): 100.4 Assessment: IBW (kg): 73.23 Dosing wt(kg): 100.4 Estimated Creatinine clearance (ml/min): 36.9 CRCL method: Cockcroft and Gault using ibw(default). Drug selected: Vancomycin Loading dose (mg): Vd (liters): 75.3 (factor used: 0.75 L/kg) Hunter (hr-1): 0.035 Half life (hrs): 19.80 CLvanco=?? 2.635 L/hr Recommended dose: 1500 mg Interval: 24 hrs Infusion time (hrs): 2.0 Predicted peak (mcg/mL): 33.9 Predicted trough (mcg/mL): 15.70 Total body weight is being used for vancomycin dosing. Re
--- NOTE | 2021-11-08 09:19 | EXP.PN ---
Subjective *Date: 11/08/21 *Time: 09:19 Interval history: Still not sleeping well at night but states she feels a little better this morning. Less short of breath. He converted to sinus rhythm overnight and is off the esmolol and Mike-Synephrine drips. He is beginning to urinate more. Exam Data for Last 24 hours Vital signs and Labs for Last 24 Hours: Temp Pulse Resp BP Pulse Ox FiO2 97.7 F 87 24 121/79 96 50 11/08/21 08:00 11/08/21 09:12 11/08/21 08:00 11/08/21 09:12 11/08/21 08:00 11/08/21 08:00 Laboratory Results - last 24 hr 11/08/21 07:31: WBC 23.9 H*, RBC 5.10, Hgb 14.5, Hct 44.0, MCV 86.4, MCH 28.5, MCHC 33.0, RDW 14.1, Plt Count 150, MPV 9.8, Neut % (Auto) 90.4 H, Lymph % (Auto) 5.3 L, [place] % (Auto) 3.4, Eos % (Auto) 0.7, Baso % (Auto) 0.2, Neut # (Auto) 21.6 H, Lymph # (Auto) 1.3, [place] # (Auto) 0.8, Eos # (Auto) 0.2, Baso # (Auto) 0.1, Total Counted 100, Neutrophils % (Manual) 92 H, Lymphocytes % (Manual) 7 L, Monocytes % (Manual) 1 L, Platelet Estimate Slight decrease, RBC Morphology Normal 11/08/21 07:31: Sodium 133 L, Potassium 6.1 H*, Chloride 107, Carbon Dioxide 14 L, Anion Gap 18.1 H, BUN 66 H D, Creatinine 1.90 H D, Estimated Creat Clear 51, Estimated GFR 35 L, Est GFR ( Amer) 42 L D, Glucose 146 H, Calcium 7.6 L, Total Bilirubin 0.7, AST 45 D, ALT 26 D, Alkaline Phosphatase 82, Total Protein 5.1 L, Albumin 2.5 L D, Globulin 2.6, Albumin/Globulin Ratio 1.0 L I & O for Last 24 hours: Intake & Output 11/05/21 11/06/21 11/07/21 11/08/21 11:59 11:59 11:59 11:59 Intake Total 360 / 360 6001.887 / 6001.887 Output Total 650 / 650 700 / 700 Balance -290 / -290 5301.887 / 5301.887 Weight 219 lb 12.814 oz 221 lb 5.506 oz Microbiology Reports for the Last 24 Hours: Microbiology 11/07/21 18:05 Sputum - Expectorated Sputum Gram Stain - Final 11/07/21 18:05 Sputum - Expectorated Sputum Sputum Culture - Preliminary 11/06/21 19:39 Blood Blood Culture - Preliminary Constitutional Comments: He is sitting up in bed. Appears somewhat dyspneic. Color is good. Chest with diminished breath sounds in the bases with lateral rales and few faint wheezes. Heart is regular. Extremities with 1+ edema. Assessment and Plan *Assessment and plan (1) Pneumonia: Status: Acute Category: Medical Code(s): J18.9 - Pneumonia, unspecified organism (2) Acute and chronic respiratory failure with hypoxia: Status: Acute Category: Medical Code(s): J96.21 - Acute and chronic respiratory failure with hypoxia (3) Atrial fibrillation with RVR: Status: Acute Category: Medical Code(s): I48.91 - Unspecified atrial fibrillation (4) Severe sepsis with acute organ dysfunction: Status: Acute Category: Medical Code(s): A41.9 - Sepsis, unspecified organism; R65.20 - Severe sepsis without septic shock (5) Metastatic lung cancer (metastasis from lung to other site): Status: Acute Category: Medical Code(s): C34.90 - Malignant neoplasm of unspecified part of unspecified bronchus or lung (6) Hypotension: Status: Acute Category: Medical Code(s): I95.9 - Hypotension, unspecified (7) CHINEDU (acute kidney injury): Status: Acute Category: Medical Code(s): N17.9 - Acute kidney failure, unspecified (8) HTN (hypertension): Status: Chronic Qualifiers: Hypertension type: essential hypertension Qualified Code(s): I10 - Essential (primary) hypertension Category: Medical Code(s): I10 - Essential (primary) hypertension (9) HLD (hyperlipidemia): Status: Chronic Qualifiers: Hyperlipidemia type: mixed hyperlipidemia Qualified Code(s): E78.2 - Mixed hyperlipidemia Category: Medical Code(s): E78.5 - Hyperlipidemia, unspecified (10) CAD (coronary artery disease): Status: Chronic Qualifiers: Coronary
--- NOTE | 2021-11-08 16:02 | PC.NURSE ---
Addendum entered by Geovanna Murphy RN 11/08/21 17:45: AFTERNOON ASSESSMENT PT WAS SITTING ON SOB AND STATED HE WAS HAVING DIFFICULTY GETTING AIR. O2 SATURATION 93-95%. LUNG SOUNDS SCATTERED WHEEZES/RHONCHI/CRACKLES. CALLED RT FOR BREATHING TREATMENT. NOTIFIED DR. HANNA. LASIX 40 MG IV ONE TIME ORDERED. Original Note: PT IS SITTING UP ON THE SOB WITH FAMILY AT BEDSIDE. PT TOLERATED SITTING UP IN THE CHAIR FOR A FEW HOURS THIS SHIFT. PT GETS VERY SOA WITH ANY EXERTION. O2 SATURATION HAS MAINTAINED 93-96% ON VAPOTHERM 20 L 40% FIO2. VSS. NSR ON TELEMETRY. LUNG SOUNDS HAVE SCATTERED WHEEZES/RHONCHI. EDEMA NOTED TO BLE. WILL CONTINUE TO MONITOR.
[2021-11-09] VITALS (16 sets, daily range): BP systolic 103–142; BP diastolic 49–96; PULSE 77–97; RESP 15–34; TEMP 36.6–37.1; O2SAT 92–97; BMI 31.9; BMI 31.8
--- NOTE | 2021-11-09 04:23 | PC.NURSE ---
Pt remains on Vapotherm @ 25L 40%. Continues to have wheezing and rhonchi to lung goldman. Pt O2 sats decline with any exertion. Has c/o generalized discomfort x1 this shift. Has rested better this shift. Pt has slept at intervals. BP and HR has remained stable. He is NSR with PACs and PVCs. Pt has used urinal. 500 ml urine output thus far. Call light at bedside.
--- NOTE | 2021-11-09 08:18 | XR_ITS ---
FINAL REPORT CLINICAL HISTORY: PNA COMPARISON: November 06, 2021 FINDINGS: PORTABLE CHEST A single portable view of the chest was obtained. There is cardiomegaly and pulmonary vascular congestion. The mediastinum is within normal limits. There are persistent, partially improved, bilateral pulmonary opacities which may represent improved pneumonia or edema. Small bilateral pleural effusions persist but are partially improved on the left. The bony thorax is intact. IMPRESSION: Improved pneumonia or edema. Small persistent bilateral pleural effusions, partially improved on the left. Reviewed, Interpreted and Dictated by Arturo Douglas III, MD Transcribed by Neda Reynolds Authenticated and . [facility]
--- NOTE | 2021-11-09 08:48 | EXP.PN ---
Subjective *Date: 11/09/21 *Time: 13:43 Interval history: Patient states he is feeling somewhat better today. His breathing is easier. He was able to ambulate and sit in bedside chair yesterday. O2 sats 95% on Vapotherm 25/40%. Good urinary output as well. He feels he is eating well. Speaks in a whisper Blood cultures growing gram-positive cocci. Sputum cultures pending. Patient remains on cefepime and vancomycin and Levaquin. He is receiving Solu-Medrol 60 mg IV every 12 hours.. He continues with diuresis. Hypotension has resolved. Patient converted to sinus rhythm. He is off all drips at present. Exam Data for Last 24 hours Vital signs and Labs for Last 24 Hours: Temp Pulse Resp BP Pulse Ox FiO2 98.5 F 79 16 107/72 L 95 40 11/09/21 08:00 11/09/21 06:00 11/09/21 06:00 11/09/21 06:00 11/09/21 06:35 11/09/21 06:35 Laboratory Results - last 24 hr 11/08/21 07:31: Total Counted 100, Neutrophils % (Manual) 92 H, Lymphocytes % (Manual) 7 L, Monocytes % (Manual) 1 L, Platelet Estimate Slight decrease, RBC Morphology Normal 11/08/21 07:31: Sodium 133 L, Potassium 6.1 H*, Chloride 107, Carbon Dioxide 14 L, Anion Gap 18.1 H, BUN 66 H D, Creatinine 1.90 H D, Estimated Creat Clear 51, Estimated GFR 35 L, Est GFR ( Amer) 42 L D, Glucose 146 H, Calcium 7.6 L, Total Bilirubin 0.7, AST 45 D, ALT 26 D, Alkaline Phosphatase 82, Total Protein 5.1 L, Albumin 2.5 L D, Globulin 2.6, Albumin/Globulin Ratio 1.0 L I & O for Last 24 hours: Intake & Output 11/06/21 11/07/21 11/08/21 11/09/21 11:59 11:59 11:59 11:59 Intake Total 360 / 360 6241.887 / 6241.887 820 / 820 Output Total 650 / 650 1300 / 1300 1900 / 1900 Balance -290 / -290 4941.887 / 4941.887 -1080 / -1080 Weight 219 lb 12.814 oz 221 lb 5.506 oz 223 lb 1.725 oz Microbiology Reports for the Last 24 Hours: Microbiology 11/06/21 19:39 Blood Blood Culture - Preliminary Gram Positive Cocci 11/07/21 18:05 Sputum - Expectorated Sputum Gram Stain - Final 11/07/21 18:05 Sputum - Expectorated Sputum Sputum Culture - Preliminary 11/06/21 19:39 Blood Blood Culture - Preliminary NO GROWTH AFTER 48 HOURS Constitutional Constitutional: no acute distress Comments: Sitting on the bedside and appears to be breathing easily *Routine Respiratory Exam Respiratory: Present rhonchi (Bilateral) and wheezes (Scattered in upper lobes) *Routine Cardiovascular Exam Cardiovascular: Present RRR (Monitor showing normal sinus rhythm in the 90s) *Routine Extremities Exam Extremities: Present edema; Absent calf tenderness *Routine Neurological Exam Neurological: Present alert and oriented X3 Assessment and Plan *Assessment and plan (1) Pneumonia: Status: Acute Category: Medical Code(s): J18.9 - Pneumonia, unspecified organism (2) Acute and chronic respiratory failure with hypoxia: Status: Acute Category: Medical Code(s): J96.21 - Acute and chronic respiratory failure with hypoxia (3) Positive blood culture: Status: Acute Category: Medical Code(s): R78.81 - Bacteremia (4) Metastatic lung cancer (metastasis from lung to other site): Status: Acute Category: Medical Code(s): C34.90 - Malignant neoplasm of unspecified part of unspecified bronchus or lung (5) Hyperkalemia: Status: Acute Category: Medical Code(s): E87.5 - Hyperkalemia (6) Renal insufficiency: Status: Acute Category: Medical Code(s): N28.9 - Disorder of kidney and ureter, unspecified (7) Atrial fibrillation with RVR: Status: Acute Category: Medical Code(s): I48.91 - Unspecified atrial fibrillation (8) DNR (do not resuscitate): Status: Acute Category: Medical Code(s): Z66 - Do not resuscitate (9) Septic shock: Status: Acute Category: Medical Code(s):
[2021-11-09 09:27] LABS: Blood Urea Nitrogen 70 mg/dl (9-20); Calcium 8.1 mg/dl (8.4-10.2); Carbon Dioxide 19 mmol/L (22.0-30.0); Chloride 104 mmol/L (98-107); Creatinine Clearance Estimated 54 mL/min (50-200); Estimated Glomerular Filt Rate 37 ml/min (>60); GFR (African American) 45 ML/MIN (>60); Glucose 119 mg/dl (74-100); Sodium 132 mmol/L (136-145)
[2021-11-09 09:29] LABS: Basophils % 0.1 % (0.1-2.0); Eosinophils # 0.1 K/mm3 (0.0-0.4); Eosinophils % 0.4 % (0.1-12.0); Hematocrit 43.8 % (42.0-52.0); Hemoglobin 14.4 g/dL (14.1-18.0); Lymphocytes # 0.7 K/mm3 (0.7-4.5); Lymphocytes % 2.5 % (10-50); Mean Corpuscular HGB Conc 32.9 g/dL (31.8-35.4); Mean Corpuscular Hemoglobin 28.3 pg (27.0-31.2); Mean Corpuscular Volume 85.9 fl (80-94); Mean Platelet Volume 9.3 fl (7.4-10.4); Monocytes % 3.4 % (1.7-9.3); Neutrophils # 27.5 K/mm3 (1.8-7.8); Neutrophils % 93.6 % (37.0-80.0); Platelet Count 155 K/mm3 (142-424); Red Cell Distribution Width 14.2 % (11.5-17.5); White Blood Count 29.4 K/mm3 (4.8-10.8)
[2021-11-09 09:37] LABS: MANUAL DIFFERENTIAL MANUAL DIFFERENTIAL (MANUAL DIFF)
[2021-11-09 10:18] LABS: Lymphocytes % 8 % (10-50); Monocytes % 4 % (2-9); Neutrophils % 88 % (42-76); Platelet Estimate Slight Decrease; RBC Morphology Normal; Total Cells Counted 100
--- NOTE | 2021-11-09 12:01 | EXP.CARD.CON ---
History of Present Illness History of Present Illness Consult date: 11/09/21 Requesting physician: Clint Alvarado Consult reason: atrial fibrillation, congestive heart failure, shortness of breath and hypotension Chief complaint: soa, weakness Additional Medical History:: Recent dx of stage IV lung cancer PAF Hypertension Mixed hyperlipidemia Coronary artery disease-SREE 2010. Medical management April 2020 Myocardial bridge Echo March 2020 Conclusion 1.? Biatrial enlargement, normal left ventricular size, mild concentric left ventricular hypertrophy, visually estimated ejection fraction 55% with no regional wall motion abnormality, grade 1 diastolic dysfunction seen without tissue Doppler evidence of raise left atrial pressure. 2.? Mildly enlarged right ventricle with normal contractility. 3.? Mild mitral and tricuspid regurgitation. 4.? No significant pericardial effusion noted. History of present illness: 71-year-old white male, with above past medical history presented to hospital on 11/07 with complaint of progressive and worsening shortness of air and lower extremity edema. Patient recently found to have a [address] scan. He underwent bronchoscopy with EBUS on 11/02/2021 with diagnosis of lung cancer. A PET scan shows abdominal lymphadenopathy and apparent pleural and pericardial involvement consistent with diagnosis of stage IV lung cancer. During his bronchoscopy procedure he had an initial episode of proximal A. fib which resolved with metoprolol. He was discharged home on 11/03/2021 with plans to follow-up with oncology on 11/05/2021. At time of discharge he was placed in a Holter monitor which showed sinus rhythm, occasional PACs, no sustained arrhythmia and no high-grade AV block or pauses. Upon presentation to ER O2 sats were noted to be in the 80s despite using 5 L of home oxygen. Chest x-ray showed extensive bilateral pulmonary infiltrates consistent with pneumonia. WBC were elevated at 21,000. BUN and creatinine were both elevated above baseline and patient was found to be tachycardic and hypotensive. Patient triggered a sepsis alert in the ED and was treated with the sepsis fluid bolus protocol but remained hypotensive. He was started on a Levophed drip and admitted for further treatment. Blood pressure stabilized on levo drip but patient remained tachycardic with rates in the 130s to 150s despite IV metoprolol and dig. Per orders from Dr. Mckinnon patient was changed from Levophed to Mike and esmolol was added. Patient converted to normal sinus rhythm, and is currently off Esmolol and Mike drips. NSR maintaned on Bisoprolol 10mg BID. Patient tolerating diuresis well, BP remained stable, nursing documentation shows increase urine output. Denies chest pain, reports still feels short of air but better and still has lower extremity edema. [facility] Medical History (Updated 11/09/21 @ 12:26 by Sonja Harper APRN) Acquired equinus deformity of both feet Acquired hammertoes of both feet Acute and chronic respiratory failure with hypoxia Calcaneal spur of both feet COPD exacerbation GERD (gastroesophageal reflux disease) Hallux rigidus of left foot Heart attack Hilar lymphadenopathy History of COVID-19 History of skin cancer Hypertension Hypertension Kidney stones Lung cancer metastatic to bone Mediastinal lymphadenopathy Metastatic lung cancer (metastasis from lung to other site) Obesity, Class I, BMI 30-34.9 Osteoarthritis of both feet Plantar fasciitis of left foot Pneumonia Prostate asymmetry Pulmonary nodule Respiratory failure, acute Surgical History H/O right heart catheterization History of coronary artery stent placement History of hernia repair History of surgical removal of skin lesion Status post bronchoscopy with biopsy Status post bronchoscopy with bronchoalveolar lavage Family History (Reviewed 11/07/21 @ 02:01 by Zara
--- NOTE | 2021-11-09 12:10 | CA_ITS ---
APPROVED REPORT EXAM: Comprehensive 2D, Doppler, and color-flow Echocardiogram Cyber Security Administrator: Letty Bruno, RT(R) Ht: 5 ft 10 in Wt: 223lbs BSA: 2.19 BP: 130/86 mmHg Indications: COPD, HTN, SOB, obesity, hyperlipidemia, CHF, metatstatic stage IV lung cancer, currently on vapotherm. He had to be scanned upright in the bed secondary to SOB. TDE. 2D Dimensions LVOT 2.20 cm (M/F) 1.5-2.5 M-Mode Dimensions RVDd 1.86 cm (0.9-2.6) LA Diam 4.34 cm (1.9-4.0) LVDd 4.17 cm (3.5-5.7) Ao Diam 3.40 cm (2.0-3.7) LVDs 3.04 cm (3.5-5.7) IVSd 1.08 cm (0.6-1.1) PWd 1.27 cm (0.6-1.1) EF (Teich) 53.20% FS 27.10% EDV (Teich) 77.30 mL ESV (Teich) 36.20 mL LV Diastology E Decel Time 150.00 (160-240 msec) E/A Ratio 0.5 MED E' 7.00 (< 7 cm/sec) E'/MED E' Ratio 4.87 (>14) LAT E' 9.60 (<10 cm/sec) E/LAT E' Ratio 3.55 (>14) Mitral Valve MV E Max Narinder. 34.00 (40-130 cm/s) MV A Velocity 62.00 (40-130 cm/s) E/A Ratio 0.55 MV Decel. Time 150.00 (160-240 ms) MV PHT 44.00 ms Left Ventricle Technically very difficult study because of the patient factors and poor acoustic windows. Endocardial surfaces are poorly visualized. Left atrium is mildly enlarged, left ventricle is normal size, there is mild concentric left ventricular hypertrophy, estimated ejection fraction 40%, there is moderate hypokinesis involving mid to distal septum and anterior wall. Grade 1 diastolic dysfunction seen without tissue Doppler evidence of raise left atrial pressure. Right Ventricle Right atrium and right ventricle are mildly enlarged with normal contractility. Aortic Valve Aortic valve is thickened and calcified without aortic stenosis or aortic insufficiency. Mitral Valve Mitral valve is minimally thickened, there is mild mitral regurgitation. Tricuspid Valve Tricuspid valve grossly normal, there is mild tricuspid regurgitation, tricuspid regurgitation jet velocity is inadequate for calculation of the right ventricular systolic pressure. Pulmonic Valve Pulmonic valve is poorly visualized. Great Vessels Aortic root is normal size. Inferior vena cava is poorly visualized. Pericardium Small pericardial effusion noted. Conclusion 1. Biatrial enlargement, normal left ventricular size mild concentric left ventricular hypertrophy, estimated ejection fraction approximately 40% with segmental wall motion abnormality described above, endocardial surfaces are poorly visualized, and technically difficult study. Grade 1 diastolic dysfunction seen without tissue Doppler evidence of raise left atrial pressure. 2. Mildly enlarged right ventricle with normal contractility. 3. Mild mitral and tricuspid regurgitation. 4. Small pericardial effusion noted. 5. Inferior vena cava is poorly visualized. Electronically signed by : Sean Mccarthy MD 11/10/2021 05:50:20
--- NOTE | 2021-11-09 15:52 | EXP.PULM.CON ---
History of Present Illness History of present illness: Mr. Hager is a 71-year-old male recent diagnosis of stage IV lung cancer presented to hospital complaining of worsening shortness of breath along with cough and productive phlegm. Denies any hemoptysis patient also needing pressors on admission to maintain adequate hemodynamic status. [facility] Medical History (Updated 11/09/21 @ 15:53 by Kenya Chahal MD) Acquired equinus deformity of both feet Acquired hammertoes of both feet Acute and chronic respiratory failure with hypoxia Calcaneal spur of both feet COPD exacerbation GERD (gastroesophageal reflux disease) Hallux rigidus of left foot Heart attack Hilar lymphadenopathy History of COVID-19 History of skin cancer Hypertension Hypertension Kidney stones Lung cancer metastatic to bone Mediastinal lymphadenopathy Metastatic lung cancer (metastasis from lung to other site) Obesity, Class I, BMI 30-34.9 Osteoarthritis of both feet Plantar fasciitis of left foot Pneumonia Prostate asymmetry Pulmonary nodule Respiratory failure, acute Surgical History H/O right heart catheterization History of coronary artery stent placement History of hernia repair History of surgical removal of skin lesion Status post bronchoscopy with biopsy Status post bronchoscopy with bronchoalveolar lavage Family History Brother Cancer Mother Cancer Other Diabetes Social History (Updated 11/07/21 @ 02:02 by Zara Quach RN) Smoking Status: Never smoker alcohol intake: never substance use type: denies use current occupational status: employed Travel in the last 8 weeks: None household members: spouse housing: house marital status: 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 current occupational exposures/hazards: No caffeine: Yes Review of Systems Constitutional Constitutional: Reports fatigue, Reports poor appetite, Reports lethargy and Reports weakness Eyes Eyes: Denies eye discharge, Denies dry eyes, Denies irritation and Denies itchy eyes ENT Ears, Nose, Mouth, and Throat: Reports change in voice, Denies dizziness, Denies lip swelling and Denies throat swelling *Cardiovascular Cardiovascular: Reports dyspnea and Reports dyspnea on exertion *Respiratory Respiratory: Reports chest congestion, Reports cough, Reports dyspnea, Reports dyspnea on exertion, Reports excessive phlegm production, Denies hemoptysis and Reports wheezing *Gastrointestinal Gastrointestinal: Denies abdominal pain, Denies belching and Denies cramping *Musculoskeletal Musculoskeletal: Reports back pain, Reports myalgias and Reports other (No small joint swelling or Pain) *Neurologic Neurologic: Denies convulsions, Denies dizziness, Denies localized weakness and Reports weakness Psychiatric Psychiatric: Denies homicidal ideation and Denies suicidal ideation Endocrine Endocrine: Reports fatigue and Denies heat intolerance Hematologic/Lymphatic Hematologic/Lymphatic: Denies easy bleeding and Denies lymphadenopathy Allergic/Immunologic Allergic/Immunologic: Denies itchy eyes, Denies lip swelling, Denies throat swelling and Reports wheezing Pulmonology Exam Inpatient Vital signs and Labs for Last 24 Hours: Temp Pulse Resp BP Pulse Ox FiO2 97.9 F 93 H 26 H 137/86 92 L 30 11/09/21 15:42 11/09/21 15:42 11/09/21 15:42 11/09/21 15:42 11/09/21 15:42 11/09/21 14:00 Laboratory Results - last 24 hr 11/09/21 08:53: WBC 29.4 H*, RBC 5.10, Hgb 14.4, Hct 43.8, MCV 85.9, MCH 28.3, MCHC 32.9, RDW 14.2, Plt Count 155, MPV 9.3, Neut % (Auto) 93.6 H, Lymph % (Auto) 2.5 L, [place] % (Auto) 3.4, Eos % (Auto) 0.4, Baso % (Auto) 0.1, Neut # (Auto) 27.5 H, Lymph # (Auto) 0.7, [place] # (Auto) 1.0, Eos # (Auto) 0.1, Baso # (Auto) 0.0, Total Counted 100, Neutrophils % (Manual) 88 H, Lymphocytes % (Manual) 8 L, Monocytes % (Manual) 4, Platelet Estima
--- NOTE | 2021-11-09 17:54 | PC.NURSE ---
shift summary: GCS 15. Pt has been OOB to chair for aprox 4hrs. Continues with bilateral ronchi and productive cough. On Vapotherm 20L/30% with O2 sat mid to high 90s. Denies dysnpea. NSR with intermittent PVCs on tele. BLE 2-3+ pitting edema. Uses BSC. Blood cx repeated.
--- NOTE | 2021-11-09 19:30 | PC.NURSE ---
Pt c/o indigestion. notified. New orders received to start pt on Protonix 40 mg PO daily.
--- NOTE | 2021-11-09 21:59 | PC.NURSE ---
DSG to RLE changed. Pt is currently resting in bed. Cath site DSG C/D/I. Ate pudding. Heels elevated on pillows. Call light within reach.
[2021-11-10] VITALS: BP 134/67; PULSE 80; PULSE 81; RESP 20; TEMP 37; O2SAT 92
[2021-11-10 00:27] VITALS: PULSE 83; PULSE 85
[2021-11-10 03:20] VITALS: PULSE 87; PULSE 95
--- NOTE | 2021-11-10 03:27 | PC.NURSE ---
Vapotherm increased to 20L 40%
[2021-11-10 04:00] VITALS: BP 130/60; PULSE 83; RESP 20; TEMP 37.1; O2SAT 91
[2021-11-10 04:17] VITALS: BMI 32.0
--- NOTE | 2021-11-10 04:45 | PC.NURSE ---
Pt has slept at intervals. Has c/o generalized pain x1. Vapotherm @ 20L 40%. O2 sats 93%. Pt has productive cough. O2 sats have declined this shift and Vapotherm was titrated after pt maintaining at 88% on 20L 30%. Lungs noted to have rhonchi and wheezing t/o. Pt has been up to BSC and voided. Call light within reach. Family at bedside.
[2021-11-10 06:00] VITALS: PULSE 80
[2021-11-10 06:11] VITALS: PULSE 84; PULSE 85; PULSE 86; RESP 20
[2021-11-10 06:22] LABS: Basophils % 0.2 % (0.1-2.0); Eosinophils # 0.1 K/mm3 (0.0-0.4); Eosinophils % 0.3 % (0.1-12.0); Hematocrit 40.8 % (42.0-52.0); Hemoglobin 13.5 g/dL (14.1-18.0); Lymphocytes # 0.5 K/mm3 (0.7-4.5); Mean Corpuscular Hemoglobin 28.5 pg (27.0-31.2); Mean Corpuscular Volume 86.5 fl (80-94); Mean Platelet Volume 9.4 fl (7.4-10.4); Monocytes # 0.8 K/mm3 (0.1-1.0); Monocytes % 3.3 % (1.7-9.3); Neutrophils # 22.3 K/mm3 (1.8-7.8); Neutrophils % 94.3 % (37.0-80.0); Platelet Count 119 K/mm3 (142-424); Red Blood Count 4.71 M/mm3 (4.60-6.20); Red Cell Distribution Width 14.3 % (11.5-17.5); White Blood Count 23.7 K/mm3 (4.8-10.8)
[2021-11-10 06:24] LABS: MANUAL DIFFERENTIAL MANUAL DIFFERENTIAL (MANUAL DIFF)
[2021-11-10 06:37] LABS: Chloride 106 mmol/L (98-107)
[2021-11-10 06:38] LABS: Potassium 4.9 mmoL/L (3.5-5.1); Sodium 135 mmol/L (136-145)
[2021-11-10 06:40] LABS: Blood Urea Nitrogen 59 mg/dl (9-20); Creatinine Clearance Estimated 65 mL/min (50-200); Estimated Glomerular Filt Rate 46 ml/min (>60); GFR (African American) 56 ML/MIN (>60)
[2021-11-10 06:41] LABS: Anion Gap 15.9 mEq/L (5-15); Calcium 7.8 mg/dl (8.4-10.2); Carbon Dioxide 18 mmol/L (22.0-30.0); Glucose 117 mg/dl (74-100)
[2021-11-10 07:06] LABS: Lymphocytes % 1 % (10-50); Monocytes % 4 % (2-9); Neutrophils % 95 % (42-76); Platelet Estimate Slight Decrease; Total Cells Counted 100
--- NOTE | 2021-11-10 10:10 | PC.NURSE ---
TOD- [id number] [facility] contacted- [phone], spoke with Tiara Wilson, ruled out for donation case # [id number] Family remains at bedside, designated [facility]
--- NOTE | 2021-11-10 11:31 | PC.NURSE ---
Post Mortem care completed, [facility] notified, awaiting home arrival
--- NOTE | 2021-11-11 08:40 | EXP.DC.SUM ---
General Admission date:: 11/07/21 Discharge date: 11/10/21 HPI HPI HPI: Mr. Hager is a 71-year-old white male who was recently found to have a 3 cm mass on the CT scan. He underwent bronchoscopy with EBUS on 11/02/2021 with diagnosis of lung cancer. He has also had a PET scan which shows abdominal lymphadenopathy and apparent pleural and pericardial involvement consistent with a diagnosis of stage IV lung cancer. He was hospitalized overnight after his bronchoscopy procedure with an episode of paroxysmal atrial fibrillation which resolved with metoprolol. He was discharged home on 11/03/2021 with plans to follow-up with oncology on 11/05/2021. Unfortunately, Dr. Sherman had to cancel her oncology clinic and he has not yet been seen. He presented to the emergency room last evening with progressive shortness of breath and weakness. He got to the point he could hardly get to the bathroom and back without extreme dyspnea. His O2 sats were dropping into the 80s despite using 5 L of home oxygen. He was brought back to the emergency room by ambulance. On work-up in the ER, he was found to have extensive bilateral pulmonary infiltrates on his chest x-ray consistent with pneumonia. His white count was elevated at 21,000. BUN and creatinine were both elevated above baseline. He was tachycardic and hypotensive. He trigered for severe sepsis and was given the sepsis fluid bolus in ER but remained hypotensive. He was started on a Levophed drip. He arrived to the floor with Levophed and on Vapotherm. Blood pressure and O2 sats have been stable through the night but he has remained tachycardic in the range of 130-150. This is despite receiving 2 doses of metoprolol along with a dose of digoxin. Cardiology has been consulted and recommended changing his drip from Levophed to esmolol and Mike-Synephrine. With this adjustment, his heart rate is running 110-120. Hospital Course Hospital Course Hospital Course: The patient was admitted and signed a DNR request. He was treated aggressively for his pneumonia with Levaquin, cefepime, and vancomycin. He was also started on neb treatments and IV steroids. He was on an esmolol and Mike-Synephrine drip per cardiology. He did begin feeling better. He converted to sinus rhythm and was off the esmolol and Mike-Synephrine drips. He has had less shortness of breath. Dr. Mckinnon ordered bisoprolol 10 mg twice daily and his carvedilol was discontinued. He was started on Lasix for diuresis. His creatinine had increased as did his potassium. By 11/09/2021 his breathing was better. He was able to ambulate some and sit up in a chair. His oxygen sats were 95% on Vapotherm he was eating well. His blood cultures were growing gram-positive cocci. He was seen in consultation by cardiology and they started him on Xarelto. They wanted to continue with diuresis. He was also seen in consultation by pulmonology who wanted to repeat blood cultures and hold off on performing a CT PE due to his renal function. His CXR showed improvement as did his labs. On the morning of 11/10/2021, the patient seemed to be doing well and according to his daughter, he ate a good breakfast, laid back in the bed, closed his eyes and lost his pulse. Per his DNR request, no resuscitation measures were initiated and he was pronounced at 0820 and his remains were released to [facility]. Exam Data for Last 24 hours Vital signs and Labs for Last 24 Hours: Temp Pulse Resp BP Pulse Ox FiO2 98.8 F 85 20 130/60 91 L 30 11/10/21 04:00 11/10/21 06:11 11/10/21 06:11 11/10/21 04:00 11/10/21 04:00 11/09/21 20:00 I & O for Last 24 hours: Intake & Output 11/08/21 11/09/21 11/10/21 11/11/21 11:59 11:59 11:59 11:59 Intake Total 6241.887 / 6241.887 820 / 820 640 / 640 Output Total 1300 / 1300 3100 / 3100 1300 / 1300 Balance 4941.887 / 4941.887 -2280 / -2280 -660 / -660 Weight 221 lb 5.506 oz 223 lb 1.725 oz 223 lb 13.683 oz
[2021-11-15 13:39] LABS: MRSA DNA PCR NEGATIVE
== END 2021-11-10 12:39 | disposition expired | DRG 871 ==
LOC: ER 19:38 → 2ND 22:24
PROVIDERS: Internal Medicine Pulmonary Disease; Admitting Provider Family Medicine; Emergency Provider Emergency Medicine; PCP Nurse Practitioner Family; Visit Provider Family Medicine
DX: A41.9 Sepsis, unspecified organism (principal); J18.9 Pneumonia, unspecified organism; J96.21 Acute and chronic respiratory failure with hypoxia; R65.21 Severe sepsis with septic shock; C34.92 Malignant neoplasm of unspecified part of left bronchus or lung; C79.51 Secondary malignant neoplasm of bone; N17.9 Acute kidney failure, unspecified; J44.0 Chronic obstructive pulmonary disease with (acute) lower respiratory infection; R65.20 Severe sepsis without septic shock; I48.91 Unspecified atrial fibrillation; I50.9 Heart failure, unspecified; Z99.81 Dependence on supplemental oxygen; Z85.828 Personal history of other malignant neoplasm of skin; M19.072 Primary osteoarthritis, left ankle and foot; M19.071 Primary osteoarthritis, right ankle and foot; E66.9 Obesity, unspecified; Z68.32 Body mass index [BMI] 32.0-32.9, adult; Z95.5 Presence of coronary angioplasty implant and graft; Z66 Do not resuscitate; E78.2 Mixed hyperlipidemia
CPT/HCPCS: 36415; 71045; 80048; 80053; 80076; 82803; 83605; 83735; 83880; 84484; 85007; 85025; 85651; 86140; 87040; 87070; 87077; 87186; 87205; 87641; 93005; 93306; 94640; 94667; 94668; 94760; 94761; 99285; C9803; J0692; J1956; J3370; U0003; U0005